=== PATIENT | female | born 1955 | race Caucasian/White ===

== ENCOUNTER 2018-01-05 01:29 | Inpatient (IN) | payer OTHER, SELFPAY ==
[2018-01-05] MEDS ORDERED: Nitroglycerin 0.4 MG TAB (25 Tab Bottle) ONE (01:59)
[2018-01-05 02:21] LABS: #Basophils 0.1 thou/uL (0.0-0.2); #Eosinphils 1.8 thou/uL (0.0-0.7); #Lymphocytes 1.1 thou/uL (1.20-3.40); #Neutrophils 8.2 thou/uL (1.40-6.50); %Basophils 0.7 % (0.0-1.0); %Eosinophils 14.6 % (0.0-10.0); %Lymphocytes 9.1 % (21.0-51.0); %Monocytes 7.9 % (0.0-10.0); %Neutrophils 67.7 % (42.0-75.0); Hemoglobin 6.4 g/dL (12.0-16.0); Hypochromia MARKED = >30 cells (100X) (0-5/hpf); MDiff Complete? YES; Mean Corpuscular HGB CONC 27.8 g/dL (32.0-36.0); Mean Corpuscular Hemoglobin 15.1 pg (27.0-31.0); Mean Corpuscular Volume 54.5 fL (78.0-98.0); Mean Platelet Volume 6.6 fL (7.4-10.4); Microcytosis MARKED = >30 cells (100X) (0-5/hpf); Ovalocytes SLIGHT = 2-5 cells (100X) (0-1/hpf); PLT Morphology Comment Appears Adequate; Platelet Count 261 thou/uL (130-400); RBC Distribution Width 21.9 % (11.5-14.5); Red Blood Cell (RBC) Count 4.22 mill/uL (4.20-5.40); Reflex for Review?? YES
[2018-01-05 02:24] LABS: ALT (SGPT) 7 U/L (8-55); AST (SGOT) 10 U/L (5-34); Albumin 3.9 g/dL (3.4-4.8); Alkaline Phosphatase 63 U/L (40-150); Anion Gap 18 mmol/L (10-20); BUN (Urea Nitrogen) 7 mg/dL (9.8-20.1); Bilirubin, Total 0.8 mg/dL (0.2-1.2); CK (CPK) 26 U/L (29-168); CKMB 0.5 ng/mL (0-6.6); Calc. Creatinine Clearance 0 mL/min (70-130); Calcium 8.7 mg/dL (7.8-10.44); Carbon Dioxide 20 mmol/L (23-31); Chloride 103 mmol/L (98-107); Estimated GFR-MDRD 80; Globulin 3.8 g/dL (2.4-3.5); Glucose 107 mg/dL (80-115); Potassium 3.8 mmol/L (3.5-5.1); Protein, Total 7.7 g/dL (6.0-8.3); Sodium 137 mmol/L (136-145); Troponin I Less than 0.010 ng/mL (< 0.028)
[2018-01-05 03:22] LABS: Iron 10 ug/dL (50-170); Iron Binding Capacity, Total 455 mcg/dL (265-497)
[2018-01-05 05:08] VITALS: BMI 33.6
[2018-01-05] MEDS ORDERED: Ondansetron HCl/PF 4 MG/2 ML Vial IVP PRN ×2 (06:40→18:27)
[2018-01-05] MEDS ORDERED: Ondansetron ODT 4 MG TAB PO PRN (06:40)
[2018-01-05] MEDS ORDERED: Sodium Chloride 0.9% 1,000 ML IV SCH (06:45)
[2018-01-05] MEDS ORDERED: Bisacodyl 5 MG TAB PO PRN (07:51)
[2018-01-05] MEDS ORDERED: Senokot 8.6 MG TAB PO PRN (07:51)
--- NOTE | 2018-01-05 08:28 | RAD ---
UPRIGHT PORTABLE CHEST 1 VIEW: HISTORY: A 62-year-old female with a history of chest pain for 2 weeks, worsening in the last hour. COMPARISON: 06/01/09. FINDINGS: Monitor leads overlie the chest. Atherosclerosis and old granulomatous disease. Mild bilateral vasc ular congestion with some slight blunting of the costophrenic angles and minimal interstitial parench ymal changes in the bases raising concern for some very mild nonspecific interstitial pneumonitis. L ess inspiration than on the prior study. IMPRESSION: Less inspiratory effort with some minimal blunting of both costophrenic angles and minimal parenchyma l changes, particularly in the left base, possibly mild pneumonitis or atypical pneumonia. Atheroscl erosis and old granulomatous disease. Continued short-term followup for clearing or stability. POS: [facility]
--- NOTE | 2018-01-05 09:02 | PDOC.EVN ---
Event Note - Event Note Event Note: h&p [id number]
[2018-01-05] MEDS: Docusate 100 MG CAP PO SCH ×2 (09:30→21:41)
--- NOTE | 2018-01-05 09:39 | HP ---
DATE OF ADMISSION: 01/05/2018 PRIMARY CARE PHYSICIAN: Dr. Sharon Copeland. CHIEF COMPLAINT: Chest pain. HISTORY OF PRESENT ILLNESS: This is a 62-year-old female with a known history of chronic anemia, who woke up with chest pain, radiating to her back in a stabbing quality with some progression of that pain going down her left arm. She also endorses more chronic symptoms including a month-long dyspnea with exertion and dyspnea causing coughing spells. Over the last 2-3 weeks, she has been feeling very cold with some anorexia and dysgeusia and intermittent low- grade fever. She has also been noticing some black tarry stools at home during this timeframe as well. Over the last 2 days, due to sensation of low-grade fever, she has also been taking ibuprofen. REVIEW OF SYSTEMS: As per HPI. Constitutional: No significant weight gain or loss that the patient is aware of. Feeling cold and low-grade fevers as above. HEENT: Denies any lightheadedness, dizziness, or vision changes. Cardiovascular: Chest pain described as above. No episodes of diaphoresis. Respiratory: Dyspnea with exertion and shortness of breath with coughing spells that are nonproductive as above; otherwise, no congestion. Gastrointestinal: No nausea, no vomiting, no diarrhea. She has decreased oral intake secondary to dysgeusia. No constipation. Positive for black tarry stools as noted above. Genitourinary: Denies any dysuria or changes in urinary frequency, quality, quantity, or odor. Musculoskeletal: Moving all 4 extremities without any new myalgias or arthralgias, simply an endorsement of increased fatigability as noted above. Remainder of review of systems, otherwise, negative. PAST MEDICAL HISTORY: Significant for anemia and low B12. PAST SURGICAL HISTORY: 1. Status post tubal ligation. 2. Status post hysterectomy. 3. Status post removal of a submandibular glandular tumor. HOME MEDICATIONS: Per the EMR, the patient's list is significant only for omeprazole 1 cap p.o. daily. ALLERGIES: Include ACETAMINOPHEN and PROPOXYPHENE. FAMILY HISTORY: Significant for hypertension in her mother and her sister and diabetes in her paternal grandmother and paternal uncle. SOCIAL HISTORY: The patient denies any tobacco use. No illicit drug use. Occasional alcohol use, 2 glasses of wine a day. 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 PHYSICAL EXAMINATION: VITAL SIGNS: Temperature of 98.4, heart rate of 86, respirations 18, satting 93 % on room air, blood pressure 119/58. GENERAL: The patient is awake, alert, conversant, in no acute distress, lying in the hospital bed. HEENT: Normocephalic, atraumatic. Equal ocular motions are intact. Slightly dry mucous membranes. Pale conjuctivae. CARDIOVASCULAR: S1 and S2. No murmurs, rubs, or gallops. No pitting pedal edema. Pulses 2+, bilateral upper extremities. RESPIRATORY: Reasonable air movement. No conversational dyspnea. No wheezes, rales, or rhonchi. Slightly diminished throughout, grossly clear to auscultation bilaterally. GASTROINTESTINAL: Positive bowel sounds. Soft, nontender to palpation. MUSCULOSKELETAL: Moving all 4 extremities. LABORATORY DATA AND IMAGING: WBC 12.0, hemoglobin 6.4, hematocrit 23.0, platelets 261. INR 2.17, sodium 137, potassium 3.8, chloride 20, BUN 7, creatinine 0.74, glucose 107, calcium 8.7. Iron 10, TIBC 455, ferritin 10.83, total bilirubin 0.8, AST 10, ALT 7, alkaline phosphatase 63. Creatine kinase 26 , troponin less than 0.01. Total protein 7.7, albumin 3.98. 01/05/2018, chest x-ray, impression, "less inspiratory effort with some minimal blunting of both costophrenic angles and minimal parenchymal changes, particularly in the left base, possibly mild pneumonitis or atypical pneumonia. Atherosclerosis and old granulomatous disease. Continued short-term followup for clearing or stability. " ASSESSMENT AND PLAN: This is a 62-year-old female, who presented with a chief complaint of chest pain and shortness of breath. 1. Chest pain and shortness of breath could be secondary to the patient's anemia, which was noted on admission. This also certainly could represent independent cardiac disease as well. We will trend troponins x3. Maintain the patient on telemetry. Recheck an EKG and echocardiogram in the morning. However, suspect that it may be more likely the patient's symptoms are the result of her anemia. In the setting of black tarry stools, there might be a GI etiology for her loss. The patient currently has already been started on 1 unit PRBC transfusion from the emergency department. She will continue this along with a serial hemoglobin and hematocrit check. GI has also been consulted. 2. Anemia as noted above. 3. Diet: N.p.o. except for medications. Continue to closely monitor. Okay for a diet if the patient will not be undergoing any endoscopy procedure. 4. Activity: As tolerated. 5. Deep venous thrombosis prophylaxis with sequentials. The patient wishes to be FULL CODE at this point in time. JEFFRY
[2018-01-05 10:38] LABS: #Basophils 0.1 thou/uL (0.0-0.2); #Eosinphils 1.3 thou/uL (0.0-0.7); #Lymphocytes 1.2 thou/uL (1.20-3.40); #Monocytes 0.9 thou/uL (0.11-0.59); #Neutrophils 7.3 thou/uL (1.40-6.50); %Basophils 0.7 % (0.0-1.0); %Eosinophils 11.8 % (0.0-10.0); %Monocytes 8.7 % (0.0-10.0); %Neutrophils 67.8 % (42.0-75.0); Anisocytosis MODERATE=16-30 cells (100X) (0-5/hpf); Hemoglobin 7.4 g/dL (12.0-16.0); Hypochromia MARKED = >30 cells (100X) (0-5/hpf); MDiff Complete? YES; Mean Corpuscular HGB CONC 28.7 g/dL (32.0-36.0); Mean Corpuscular Hemoglobin 17.1 pg (27.0-31.0); Mean Corpuscular Volume 59.7 fL (78.0-98.0); Mean Platelet Volume 6.8 fL (7.4-10.4); Microcytosis MARKED = >30 cells (100X) (0-5/hpf); Ovalocytes SLIGHT = 2-5 cells (100X) (0-1/hpf); PLT Morphology Comment Appears Adequate; Platelet Count 253 thou/uL (130-400); Poikilocytosis SLIGHT = 6-15 cells (100X) (0-5/hpf); Red Blood Cell (RBC) Count 4.32 mill/uL (4.20-5.40); Target Cells SLIGHT = 2-5 cells (100X) (0-1/hpf); White Blood Cell (WBC) Count 10.8 thou/uL (4.8-10.8)
[2018-01-05] MEDS ORDERED: Pantoprazole 40 MG VIAL ONE (13:57)
[2018-01-05] MEDS ORDERED: Albuterol Sulfate 2.5 mg/3 ml Neb NEB PRN (14:17)
--- NOTE | 2018-01-05 14:22 | PDOC.EVN ---
Event Note - Event Note Event Note: Patient seen today, alert and oriented. She has chest pain ongoing since 2 weeks , she says was taking iburofen for pains. She is noted to have Hb of 66.4, but stool diagbnostic occult was neg, Pt was taken to GI lab for Endoscuopy but was not done as GI wanted further workup for chest pain and possible pneumonia. Will get Blood Cultures, get inflammotory markers, and will start Abx, will do Cafdiac evalaution, but will hold giving aspirin unti Gi bleed is ruled out.
[2018-01-05] MEDS ORDERED: PROPOFOL 200 MG/20 ML VIAL ONE (15:03)
--- NOTE | 2018-01-05 15:18 | EKG ---
Test Reason : Blood Pressure : / mmHG Vent. Rate : 078 BPM Atrial Rate : 078 BPM P-R Int : 170 ms QRS Dur : 088 ms QT Int : 440 ms P-R-T Axes : 074 051 020 degrees QTc Int : 501 ms Normal sinus rhythm T wave abnormality, consider anterior ischemia Prolonged QT Abnormal ECG Confirmed by TATIANA TONG MD ([id number]) on 01/05/2018 3:17:53 PM Referred By: PRABHA Confirmed By:TATIANA TONG MD
[2018-01-05 15:35] LABS: Troponin I 0.011 ng/mL (< 0.028)
[2018-01-05 16:07] LABS: #Basophils 0.1 thou/uL (0.0-0.2); #Eosinphils 1.1 thou/uL (0.0-0.7); #Lymphocytes 1.1 thou/uL (1.20-3.40); #Neutrophils 9.3 thou/uL (1.40-6.50); %Basophils 0.7 % (0.0-1.0); %Eosinophils 8.7 % (0.0-10.0); %Lymphocytes 8.6 % (21.0-51.0); %Monocytes 8.1 % (0.0-10.0); %Neutrophils 73.9 % (42.0-75.0); Anisocytosis MODERATE=16-30 cells (100X) (0-5/hpf); Hemoglobin 7.4 g/dL (12.0-16.0); Hypochromia SLIGHT = 6-15 cells (100X) (0-5/hpf); MDiff Complete? YES; Mean Corpuscular HGB CONC 28.6 g/dL (32.0-36.0); Mean Corpuscular Hemoglobin 17.1 pg (27.0-31.0); Mean Platelet Volume 8.2 fL (7.4-10.4); Microcytosis MODERATE=15-30 cells (100X) (0-5/hpf); Ovalocytes SLIGHT = 2-5 cells (100X) (0-1/hpf); PLT Morphology Comment Appears Adequate; Platelet Count 197 thou/uL (130-400); Poikilocytosis SLIGHT = 6-15 cells (100X) (0-5/hpf); Polychromasia MODERATE = 3-4 cells (100X) (0-2/hpf); RBC Distribution Width 27.8 % (11.5-14.5); Red Blood Cell (RBC) Count 4.35 mill/uL (4.20-5.40); Schistocytes SLIGHT = 2-5 cells (100X) (0-1/hpf); Target Cells SLIGHT = 2-5 cells (100X) (0-1/hpf); Tear Drops SLIGHT = 2-5 cells (100X) (0-1/hpf); White Blood Cell (WBC) Count 12.5 thou/uL (4.8-10.8)
[2018-01-05] MEDS: cefTRIAXone\\ROCEPHIN 1 GM in Sodium Chloride 0.9% 100 ML IVPB SCH (16:08)
[2018-01-05] MEDS: Azithromycin 500 MG in Sodium Chloride 0.9% 250 ML 250 ML IVPB SCH (16:44)
[2018-01-05] MEDS ORDERED: Pantoprazole 40 MG VIAL IVP SCH ×2 (20:30→21:00)
[2018-01-05] MEDS ORDERED: Ibuprofen 200 MG TAB PO SCH (21:30)
[2018-01-05 21:44] LABS: Troponin I Less than 0.010 ng/mL (< 0.028)
[2018-01-05 22:29] LABS: Bilirubin Negative (Negative); Blood, Urine Trace (Negative); Clarity TURBID (Clear); Glucose, Urine (Dipstick) Negative (Negative); Leukocyte Small (Negative); Nitrite Negative (Negative); Protein, Urine (Dipstick) 30 mg/dL (Neg-Trace); Specific Gravity, Urine 1.025 (1.002-1.036); Urobilinogen 0.2 mg/dL (0.2-1.0); pH, Urine 5.5 (5.0-9.0)
[2018-01-05 22:34] LABS: Bacteria/HPF None Seen HPF (None Seen); Hyaline Casts/LPF 0-3 HYALINE CAST LPF (0-3 Hyaline); Pathc Cast-AUWi Flag 0.43 (0-2.49); Squamous Epithelial 0-3 HPF (0-3)
--- NOTE | 2018-01-05 23:32 | OP ---
DATE OF SURGERY: 01/05/2018 PROCEDURE: EGD. PREPROCEDURE DIAGNOSES: 1. Reported melena. 2. Severe anemia on presentation. POSTPROCEDURE DIAGNOSES: 1. Moderate sized hiatal hernia without Pelon's ulcers or erosions. 2. Normal stomach otherwise. 3. Normal esophagus. 4. Normal duodenum to the third portion with normal appearing villi and no evidence of villous blunt ing or scalloping of folds. RECOMMENDATIONS: 1. Would complete workup for chest pain that she has had some ongoing pain despite hemoglobin to 7. 2. Would transfuse as necessary. 3. Once cleared from cardiovascular standpoint, consider elective colonoscopy. It does not appear t hat she has any acute gastrointestinal bleeding, but she does have iron-deficiency anemia and she did get this done before she leaves. ANESTHESIA: TIVA. PROCEDURE IN DETAIL: After the patient was informed of the risks, benefits, and possible complicatio ns of endoscopy including perforation, reactions to medication, and aspiration, informed consent was obtained. The patient was brought to endoscopy suite, where she was sedated in a gradual fashion. O nce she was comfortable, a bite block was placed in the incisural orifice. The endoscope was advance d to the esophagus, stomach, second and third portion of duodenum and slowly removed. There was good visualization of mucosa. There are no masses, lesions, or malformations. There was a hiatal hernia with no Pelon's ulcers or erosions. There was no villous blunting or scalloping of the duodenal f olds. The stomach was normal in forward and retroflexed views and the duodenum was normal to the thi rd portion. The scope was removed. The patient tolerated the procedure well without any complicatio ns.
--- NOTE | 2018-01-06 00:37 | CON ---
DATE OF CONSULTATION: 01/05/2018 HISTORY OF PRESENT ILLNESS: Ms. Gutierrez is a 62-year-old female, who presented to the emergency room with complaints of chest pain. Apparently, woke in the middle of night with a sharp stabbin g chest pain starting by in her left shoulder from the back by the shoulder blade up to the fro nt, and then into the neck. She is also complaining of headache. She also complained of some shortn ess of breath. She had no nausea, vomiting, or diarrhea. Apparently, she had this pain on and off f or the last few months, but nothing as bad as this. In the emergency room, she was given aspirin and nitroglycerin. Cardiac enzymes and EKG were performed, all of which were normal. Her labs indicate d a hemoglobin between 6 and 7 with microcytosis. On further questioning of the patient with the adm itting doctor, the patient noted she has actually been having black stools recently. She has been ta artie some ibuprofen. She states the past 3 days she has had some fever and cough. Before that, she was taking ibuprofen a couple times a day just for aches and pains. She has had no bright red blood per rectum. No nausea, vomiting, dysphagia, odynophagia, or weight loss. She denies any upper abdom inal pain, lower abdominal pain. She has never had a colonoscopy. HPI is otherwise per admitting no te. REVIEW OF SYSTEMS: She had some chest pain and shortness of breath with exertion. HEENT: Negative. Constitutional: Otherwise negative except for 2 to 3-pound weight loss recently. Respiratory: Co ugh and shortness of breath. Gastrointestinal: The patient does have some reflux at times. No dysp hagia, odynophagia, hematemesis. PAST MEDICAL HISTORY: Negative. She recently started seeing Dr. Sharon Copeland as primary physician. 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 SOCIAL HISTORY: She drinks socially, maybe once a week. She does not use drugs. She does not smoke . ALLERGIES: None known. MEDICATIONS: She takes Pepcid for reflux. Medications here in the hospital: At the time I saw her, she had received IV fluids and no PPIs. PHYSICAL EXAMINATION: VITAL SIGNS: In the emergency room, she had a pulse of 106, blood pressure 118/76. She is afebrile. Here, temperature is 99.3 at 11:44, otherwise she has been afebrile; blood pressure 148/67. LUNGS: Clear. Some decreased breath sounds in the bases bilaterally and some rhonchi there, more so on the left than right. HEART: Regular rate and rhythm. ABDOMEN: Soft and nontender without rebound or guarding. EXTREMITIES: No clubbing, cyanosis, or edema. RECTAL: Dark stool. It is hard to tell if this is melena or not. LABORATORY DATA: White count was 12 on admission, it is 10.8 now; hemoglobin was 6.4, it is 7.4 afte r 1 unit of blood; platelet count is 253; MCV is 59. D-dimer was 2.1. Electrolytes are normal. Iro n is 10, TIBC is 450, ferritin is 10.8. AST and ALT are 10 and 7. CK is 26. Albumin is 3.9. TSH i s 1.6. Chest x-ray: No blunting in both cardiophrenic angles and minimal parenchymal changes, particularly in the left base, possible pneumonitis, atypical pneumonia. Microbiology: Occult blood negative. ASSESSMENT: This is a 62-year-old female who has been having some shortness of breath recently and h ad some chest pain last night. She is getting more short of breath. She came with a hemoglobin of 6 .4. There is no baseline recently, last being 13.4 in 03/2012. She had a low MCV and iron studies c onsistent with iron deficiency anemia. There has been a history of black stools and heavy NSAID use recently, although her Hemoccult was negative. It does not appear she is having acute GI hemorrhages . only been 1 or 2 a day, but definitely she started feeling worse in the past 2 days. With h er history of black stools in the past week or two, she may have an ulcer from NSAID use. Briativ christina, she noted that her mother is having history of polyps and she could have colonic process causing anemia. Even with her Hemoccult being negative, with her having had a hysterectomy in the past and being severely anemic with an iron deficiency, she will need endoscopies. PLAN: 1. Protonix now. 2. We will proceed with an EGD now. 3. She probably needs a stress test at some point in time. If the EGD is negative, she will need a colonoscopy later this admission once other workup is complete.
[2018-01-06 06:03] LABS: Anion Gap 11 mmol/L (10-20); BUN (Urea Nitrogen) 8 mg/dL (9.8-20.1); Calc. Creatinine Clearance 106 mL/min (70-130); Calcium 8.4 mg/dL (7.8-10.44); Carbon Dioxide 24 mmol/L (23-31); Chloride 107 mmol/L (98-107); Estimated GFR-MDRD 88; Glucose 98 mg/dL (80-115); Potassium 3.7 mmol/L (3.5-5.1); Sodium 138 mmol/L (136-145)
[2018-01-06 06:35] LABS: #Basophils 0.1 thou/uL (0.0-0.2); #Eosinphils 0.3 thou/uL (0.0-0.7); #Lymphocytes 1.4 thou/uL (1.20-3.40); #Neutrophils 7.3 thou/uL (1.40-6.50); %Basophils 0.6 % (0.0-1.0); %Lymphocytes 14.2 % (21.0-51.0); %Monocytes 9.7 % (0.0-10.0); %Neutrophils 72.5 % (42.0-75.0); Hemoglobin 6.6 g/dL (12.0-16.0); Mean Corpuscular HGB CONC 28.7 g/dL (32.0-36.0); Mean Corpuscular Hemoglobin 16.9 pg (27.0-31.0); Mean Platelet Volume 7.1 fL (7.4-10.4); Platelet Count 236 thou/uL (130-400); RBC Distribution Width 27.5 % (11.5-14.5); Red Blood Cell (RBC) Count 3.93 mill/uL (4.20-5.40); White Blood Cell (WBC) Count 10.1 thou/uL (4.8-10.8)
[2018-01-06] MEDS: Docusate 100 MG CAP PO SCH ×2 (08:50→22:06)
[2018-01-06] MEDS ORDERED: ISOVUE-370 76%-LOCM 1 ML ONE (13:43)
[2018-01-06] MEDS: cefTRIAXone\\ROCEPHIN 1 GM in Sodium Chloride 0.9% 100 ML IVPB SCH (14:15)
--- NOTE | 2018-01-06 14:38 | PDOC.PN ---
- Subjective Encounter Start Date: 01/06/18 Encounter Start Time: 14:00 Federico is seen today, along with her Daughter In law, Pt is unable to get stress test as she lost her IV access, She c/o chest pain on and off, was nevear evalauted with elevated D dimer done in Er. Will get CTA to r/o PE. - Objective Resuscitation Status: Resuscitation Status FULL:Full Resuscitation MAR Reviewed: Yes Vital Signs & Weight: Vital Signs (12 hours) Temp Pulse Resp BP Pulse Ox 01/06/18 14:33 101 H 12 01/06/18 14:28 99.7 F H 99 20 132/77 96 01/06/18 07:54 98.1 F 80 20 107/67 94 L 01/06/18 07:40 98.6 F 79 12 93 L 01/06/18 06:36 98 01/06/18 06:33 79 12 01/06/18 04:00 98.3 F 76 18 106/67 96 Weight Weight 172 lb 6.4 oz Most Recent Monitor Data Heart Rate from ECG 86 NIBP 128/65 Respiration from ECG 20 I&O: 01/05/18 01/06/18 01/07/18 06:59 06:59 06:59 Intake Total 0 650 300 Balance 0 650 300 Result Diagrams: 01/06/18 05:02 01/06/18 05:02 Radiology Reviewed by me: Yes Phys Exam - Physical Examination HEENT: PERRLA, moist MMs Neck: no nodes, no JVD Respiratory: no wheezing, no rales, no rhonchi Cardiovascular: RRR, no significant murmur, no rub Gastrointestinal: soft, non-tender Musculoskeletal: no edema, pulses present Dx/Plan (1) Anemia, iron deficiency Code(s): D50.9 - IRON DEFICIENCY ANEMIA, UNSPECIFIED Status: Acute Qualifiers: Iron deficiency anemia type: other iron deficiency Qualified Code(s): D50.8 - Other iron deficiency anemias Comment: Will get iron levels, pathology smear did show microcytois, if iron is normal, will do Hb [id number] for thalacemia., Will consult Hematology, no source of loss is detected. EGD normal, planned Colonoscopy. Continue PPI IV BID. (2) Chest pain Code(s): R07.9 - CHEST PAIN, UNSPECIFIED Status: Acute Comment: Waiitng on Nuc stress test.Intermittant chest pains, elevated D dimer in Er, no CT chest wa sdone to rule out PE, pt was hypoxic, will get CTA chest to look for Pe. (3) Pneumonia involving left lung Code(s): J18.9 - PNEUMONIA, UNSPECIFIED ORGANISM Status: Acute Comment: Coninue IV abx, breathing treatment PRN. Low grade fever noted today, no cough or congestion. Will repeat chest xray in 2-3 days. (4) HTN (hypertension) Code(s): I10 - ESSENTIAL (PRIMARY) HYPERTENSION Status: Acute Comment: Continue with home Medications. - Plan cont current plan of care, plan discussed w/ family, continue antibiotics, PT/OT , administrator social welfare, respiratory therapy, incentive spirometry, DVT proph w/ lovenox * . Review of Systems - Review of Systems Constitutional: negative: fever, chills, sweats, weakness, malaise, other Eyes: negative: Pain, Vision Change, Conjunctivae Inflammation, Eyelid Inflammation, Redness, Other ENT: negative: Ear Pain, Ear Discharge, Nose Pain, Nose Discharge, Nose Congestion, Mouth Pain, Mouth Swelling, Throat Pain, Throat Swelling, Other Respiratory: negative: Cough, Dry, Shortness of Breath, Hemoptysis, SOB with Excertion, Pleuritic Pain, Sputum, Wheezing Cardiovascular: negative: chest pain, palpitations, orthopnea, paroxysmal nocturnal dyspnea, edema, light headedness, other Gastrointestinal: negative: Nausea, Vomiting, Abdominal Pain, Diarrhea, Constipation, Melena, Hematochezia, Other Genitourinary: negative: Dysuria, Frequency, Incontinence, Hematuria, Retention , Other Musculoskeletal: negative: Neck Pain, Shoulder Pain, Arm Pain, Back Pain, Hand Pain, Leg Pain, Foot Pain, Other - Medications/Allergies Allergies/Adverse Reactions: Allergies Allergy/AdvReac Type Severity Reaction Status Date / Time acetaminophen Allergy Verified 01/05/18 05:02 [From Darvocet-N] propoxyphene Allergy Verified 01/05/18 05:02 [From Darvocet-N] Medications: Current Medications Albuterol Sulfate (Ventolin) 2.5 mg NEB Q2H PRN PRN Reason: Wheezing Albuterol/Ipratropium (Duoneb) 3 ml NEB [id number] Last Admin: 01/06/18 14:33 Dose: 3 ml Bisacodyl (Dulcolax) 10 mg PO DAILYPRN PRN PRN Reason: Constipation Docusate Sodium (Colace) 100 mg PO BID [facility] Last Admin: 01/06/18 08:50 Dose: Not Given Azithromycin 500 mg/ Sodium (Chloride) 250 mls @ 250 mls/hr IVPB Q24HR [facility] Last Admin: 01/05/18 16:44 Dose: 250 mls Ceftriaxone Sodium 1 gm/ (Sodium Chloride) 100 mls @ 200 mls/hr IVPB Q24HR [facility] Last Admin: 01/06/18 14:15 Dose: 100 mls Ondansetron HCl (Zofran) 4 mg IVP Q6H PRN PRN Reason: Nausea/Vomiting Last Admin: 01/05/18 18:40 Dose: 4 mg Pantoprazole Sodium (Protonix) 40 mg PO DAILY [facility] Last Admin: 01/06/18 08:50 Dose: 40 mg Senna (Senokot) 2 tab PO HSPRN PRN PRN Reason: Constipation Sodium Chloride (Flush - Normal Saline) 10 ml IVF Q12HR [facility] Last Admin: 01/06/18 08:50 Dose: 10 ml Sodium Chloride (Flush - Normal Saline) 10 ml IVF PRN PRN PRN Reason: Saline Flush
[2018-01-06 14:46] LABS: Reticulocyte Count 2.4 % (0.5-1.5)
[2018-01-06] MEDS: Ibuprofen 200 MG TAB PO PRN (14:51)
[2018-01-06 15:01] LABS: Iron 12 ug/dL (50-170); Iron Binding Capacity, Total 356 mcg/dL (265-497)
--- NOTE | 2018-01-06 18:20 | PDOC.EVN ---
Event Note - Event Note Event Note: Patient is noted to have PE left lung, will start pt on Lovenox 1mg kg BID. Confirmed with Radiologist, there is no discetion.
--- NOTE | 2018-01-06 18:25 | CT ---
ADDENDUM: Findings concerning CTA chest were discussed with Dr. Rivera on 01/06/18 at 1814 hours. POS: [facility]
--- NOTE | 2018-01-06 20:44 | PRG ---
DATE OF SERVICE: 01/06/2018 SUBJECTIVE: Ms. Gutierrez is without complaints today, but she has been through a lot as she could not have her stress test that she could be getting in an IV. Multiple attempts were unsuccessful, she now has an IJ iv. . MEDICATIONS: Albuterol, DuoNeb, azithromycin, Dulcolax, ceftriaxone, Colace, Zofran, Protonix 40 mg daily. PHYSICAL EXAMINATION: GENERAL: She is resting comfortably in bed. Family is at the bedside. VITAL SIGNS: Temperature is 98.1, pulse ox is 94% on room air, respirations are 18, pulse is 80, blood pressure 107/67. ABDOMEN: Soft, nontender. LUNGS: Decreased breath sounds, right base. LABORATORY STUDIES: White count is 10, hemoglobin 6.6, MCV 59, platelet count 236. Sodium 138, potassium 3.7. Electrolytes, otherwise, normal. C-reactive protein was 15 yesterday. Procalcitonin 0.08. ASSESSMENT: 1. Microcytic anemia. This is probably chronic to some degree. She came in with chest pain. An EGD was normal. Occult blood was negative, low iron of 10 and a low ferritin of 10. This is likely related to gastrointestinal blood loss despite the negative Hemoccult. 2. Shortness of breath, likely related to anemia, but she has got a significant amount of wheezing. Chest x-ray is unclear. She may have had some infiltrate. She has been treated for an atypical pneumonia. 3. More concerning to me is her chest pain. I suspect her anemia is not new; however, the chest pain is. A cardiac workup is pending. 4. Symptomatic anemia. She is going to receive 2 units of blood. She received 1 yesterday. Once she is adequately resuscitated and cardiac evaluation has been complete, we will proceed with a colonoscopy. PLAN: From a GI standpoint, once she is resuscitated and cardiac evaluation is complete and pulmonary status is stable, we would embark on a colonoscopy. [facility]ITAL[facility]
[2018-01-06] MEDS: Azithromycin 500 MG in Sodium Chloride 0.9% 250 ML 250 ML IVPB SCH (22:04)
[2018-01-06] MEDS: Enoxaparin Sodium 80 MG/0.8 ML SYRINGE SC SCH (22:04)
[2018-01-07] MEDS: Azithromycin 500 MG in Sodium Chloride 0.9% 250 ML 250 ML IVPB SCH ×2 (00:50→21:30)
[2018-01-07 05:46] LABS: #Basophils 0.1 thou/uL (0.0-0.2); #Eosinphils 0.9 thou/uL (0.0-0.7); #Lymphocytes 1.1 thou/uL (1.20-3.40); #Monocytes 0.6 thou/uL (0.11-0.59); #Neutrophils 6.4 thou/uL (1.40-6.50); %Eosinophils 9.4 % (0.0-10.0); %Lymphocytes 12.3 % (21.0-51.0); %Neutrophils 70.4 % (42.0-75.0); Hemoglobin 9.2 g/dL (12.0-16.0); Mean Corpuscular HGB CONC 30.1 g/dL (32.0-36.0); Mean Corpuscular Hemoglobin 19.6 pg (27.0-31.0); Mean Corpuscular Volume 65.2 fL (78.0-98.0); Mean Platelet Volume 7.5 fL (7.4-10.4); Platelet Count 231 thou/uL (130-400); RBC Distribution Width 29.9 % (11.5-14.5); Red Blood Cell (RBC) Count 4.69 mill/uL (4.20-5.40); White Blood Cell (WBC) Count 9.1 thou/uL (4.8-10.8)
[2018-01-07 05:57] LABS: Anion Gap 11 mmol/L (10-20); BUN (Urea Nitrogen) 9 mg/dL (9.8-20.1); Calc. Creatinine Clearance 113 mL/min (70-130); Calcium 8.4 mg/dL (7.8-10.44); Carbon Dioxide 24 mmol/L (23-31); Chloride 106 mmol/L (98-107); Estimated GFR-MDRD Greater than 90; Glucose 96 mg/dL (80-115); Potassium 3.7 mmol/L (3.5-5.1); Sodium 137 mmol/L (136-145)
[2018-01-07] MEDS: Docusate 100 MG CAP PO SCH ×2 (08:42→21:23)
[2018-01-07] MEDS: Enoxaparin Sodium 80 MG/0.8 ML SYRINGE SC SCH ×2 (08:43→21:23)
--- NOTE | 2018-01-07 08:52 | ULT ---
BILATERAL LOWER EXTREMITY VENOUS DUPLEX EXAM: Deep veins of both lower extremities evaluated with ultrasound, color Doppler, spectral analysis, and compression. INDICATION: Bilateral lower extremity pain and edema. FINDINGS: In the left lower extremity, there is echogenic thrombus and loss of compressibility involving the di stal femoral vein with thrombus seen throughout the femoral vein and into the popliteal vein. The right lower extremity vein showed normal compression and blood flow. IMPRESSION: Deep vein thrombosis in the left lower extremity involving the common femoral vein, femoral vein, and proximal popliteal vein. The patient has known pulmonary embolus and is on anticoagulation therapy. The nurse was notified of the results of this exam by the technologist. CODE CR POS: [facility]
--- NOTE | 2018-01-07 14:44 | PDOC.PN ---
- Subjective Encounter Start Date: 01/07/18 Encounter Start Time: 13:00 Patient is seen today, alert and oriejnted. No chest pain, Now, pt is releived there is a reason for her chest pain, but still dont know the reason for her Drop in Hb. - Objective Resuscitation Status: Resuscitation Status DNR:Do Not Resuscitate Vital Signs & Weight: Vital Signs (12 hours) Temp Pulse Resp BP Pulse Ox 01/07/18 12:00 98.4 F 87 20 140/85 93 L 01/07/18 11:35 76 16 01/07/18 07:47 99.7 F H 81 16 165/75 H 96 01/07/18 07:45 99 01/07/18 07:42 80 108 H 99 01/07/18 07:40 99.7 F H 81 16 92 L 01/07/18 03:36 98.6 F 87 20 128/73 97 Weight Weight 172 lb 6.4 oz Most Recent Monitor Data Heart Rate from ECG 86 NIBP 128/65 Respiration from ECG 20 I&O: 01/06/18 01/07/18 01/08/18 06:59 06:59 06:59 Intake Total 650 1300 300 Balance 650 1300 300 Result Diagrams: 01/07/18 04:58 01/07/18 04:58 Radiology Reviewed by me: Yes Phys Exam - Physical Examination HEENT: PERRLA, moist MMs Neck: no nodes, no JVD Respiratory: no wheezing, no rales Cardiovascular: RRR, no significant murmur Gastrointestinal: soft, non-tender Musculoskeletal: no edema, pulses present Neurological: non-focal, normal sensation Dx/Plan (1) Anemia, iron deficiency Code(s): D50.9 - IRON DEFICIENCY ANEMIA, UNSPECIFIED Status: Acute Qualifiers: Iron deficiency anemia type: other iron deficiency Qualified Code(s): D50.8 - Other iron deficiency anemias Comment: Will get iron levels, pathology smear did show microcytois, if iron is normal, will do Hb [id number] for thalacemia., Will consult Hematology, no source of loss is detected. EGD normal, planned Colonoscopy. Continue PPI IV BID. (2) Chest pain Code(s): R07.9 - CHEST PAIN, UNSPECIFIED Status: Acute Comment: d/c Nuc stress test, as the reason for chest pain is PE. waiting on echo. (3) Pneumonia involving left lung Code(s): J18.9 - PNEUMONIA, UNSPECIFIED ORGANISM Status: Acute Comment: breathing treatment PRN. Low grade fever noted today, no cough or congestion. Will repeat chest xray in 2-3 days. Procalcitonin is low, so less chance of bacterial pneumonia, will d/c IV abx. (4) HTN (hypertension) Code(s): I10 - ESSENTIAL (PRIMARY) HYPERTENSION Status: Acute Comment: Continue with home Medications. (5) Pulmonary embolism on left Code(s): I26.99 - OTHER PULMONARY EMBOLISM WITHOUT ACUTE COR PULMONALE Status : Acute Comment: Will continue pt on Lovenox 1mg/kg BID, will need eliquis at discharge. (6) Acute deep vein thrombosis (DVT) of left lower extremity Code(s): I82.402 - ACUTE EMBOLISM AND THOMBOS UNSP DEEP VEINS OF L LOW EXTREM Status: Acute Qualifiers: Affected thrombotic vein of extremity: femoral Qualified Code(s): I82.412 - Acute embolism and thrombosis of left femoral vein Comment: Plan is same with benigno, - Plan cont current plan of care, plan discussed w/ family, continue antibiotics, PT/OT , social media developer, respiratory therapy, incentive spirometry, DVT proph w/ lovenox * . Review of Systems - Review of Systems Eyes: negative: Pain, Vision Change, Conjunctivae Inflammation, Eyelid Inflammation, Redness, Other ENT: negative: Ear Pain, Ear Discharge, Nose Pain, Nose Discharge, Nose Congestion, Mouth Pain, Mouth Swelling, Throat Pain, Throat Swelling, Other Respiratory: negative: Cough, Dry, Shortness of Breath, Hemoptysis, SOB with Excertion, Pleuritic Pain, Sputum, Wheezing Cardiovascular: negative: chest pain, palpitations, orthopnea, paroxysmal nocturnal dyspnea, edema, light headedness, other Gastrointestinal: negative: Nausea, Vomiting, Abdominal Pain, Diarrhea, Constipation, Melena, Hematochezia, Other Genitourinary: negative: Dysuria, Frequency, Incontinence, Hematuria, Retention , Other Musculoskeletal: negative: Neck Pain, Shoulder Pain, Arm Pain, Back Pain, Hand Pain, Leg Pain, Foot Pain, Other - Medications/Allergies Allergies/Adverse Reactions: Allergies Allergy/AdvReac Type Severity Reaction Status Date / Time acetaminophen Allergy Verified 01/05/18 05:02 [From Darvocet-N] propoxyphene Allergy Verified 01/05/18 05:02 [From Darvocet-N] Medications: Current Medications Albuterol Sulfate (Ventolin) 2.5 mg NEB Q2H PRN PRN Reason: Wheezing Albuterol/Ipratropium (Duoneb) 3 ml NEB [id number] [facility] Last Admin: 01/07/18 11:35 Dose: 3 ml Bisacodyl (Dulcolax) 10 mg PO DAILYPRN PRN PRN Reason: Constipation Docusate Sodium (Colace) 100 mg PO BID [facility] Last Admin: 01/07/18 08:42 Dose: Not Given Enoxaparin Sodium (Lovenox) 80 mg SC 0900,2100 [facility] Last Admin: 01/07/18 08:43 Dose: 80 mg Ceftriaxone Sodium 1 gm/ (Sodium Chloride) 100 mls @ 200 mls/hr IVPB Q24HR [facility] Last Admin: 01/06/18 14:15 Dose: 100 mls Azithromycin 500 mg/ Sodium (Chloride) 250 mls @ 250 mls/hr IVPB 2200 [facility] Last Admin: 01/06/18 22:04 Dose: 250 mls Ibuprofen (Motrin) 200 mg PO Q6H PRN PRN Reason: Fever/Mild Pain Last Admin: 01/06/18 14:51 Dose: 200 mg Ondansetron HCl (Zofran) 4 mg IVP Q6H PRN PRN Reason: Nausea/Vomiting Last Admin: 01/05/18 18:40 Dose: 4 mg Pantoprazole Sodium (Protonix) 40 mg PO DAILY [facility] Last Admin: 01/07/18 08:43 Dose: 40 mg Senna (Senokot) 2 tab PO HSPRN PRN PRN Reason: Constipation Sodium Chloride (Flush - Normal Saline) 10 ml IVF Q12HR [facility] Last Admin: 01/07/18 08:44 Dose: 10 ml Sodium Chloride (Flush - Normal Saline) 10 ml IVF PRN PRN PRN Reason: Saline Flush
[2018-01-07] MEDS: cefTRIAXone\\ROCEPHIN 1 GM in Sodium Chloride 0.9% 100 ML IVPB SCH (15:30)
[2018-01-07] MEDS: Ibuprofen 200 MG TAB PO PRN (15:39)
[2018-01-07 17:22] LABS: Bilirubin Small (Negative); Blood, Urine Trace (Negative); Clarity CLOUDY (Clear); Glucose, Urine (Dipstick) Negative (Negative); Leukocyte Small (Negative); Nitrite Negative (Negative); Protein, Urine (Dipstick) 30 mg/dL (Neg-Trace); Specific Gravity, Urine 1.033 (1.002-1.036)
[2018-01-07 17:27] LABS: Bacteria/HPF None Seen HPF (None Seen); WBC/HPF 0-3 HPF (0-3)
[2018-01-07 17:42] LABS: Hyaline Casts/LPF 0-3 HYALINE CAST LPF (0-3 Hyaline); RBC/HPF 0-3 HPF (0-3)
--- NOTE | 2018-01-07 19:19 | PRG ---
DATE OF SERVICE: 01/07/2018 SUBJECTIVE: Ms. Gutierrez is without complaints. She is doing breathing treatment. Yesterday evening, s he was found to have pulmonary embolus on CT. 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 She h as been Hemoccult negative on admission normal EGD. OBJECTIVE: VITAL SIGNS: Temperature is 98.4, pulse was 99, blood pressure 140/85. LUNGS: Clear. HEART: Regular rate and rhythm without murmurs. ABDOMEN: Soft and nontender. LABORATORY STUDIES: White count 9.1, hemoglobin 9.2, platelet count 231. Electrolytes normal. ASSESSMENT: 1. Iron deficiency anemia, severe on admission with EGD with hiatal hernia with no Pelon's ulcers or erosions. No bleeding sites identified. Colonoscopy is recommended. 2. Respiratory issues on admission, she was initially started on antibiotics. Now, she has been fou nd to have a PE and has been started on Lovenox 80 subcu q.12 hours. RECOMMENDATIONS: 1. I will stop her antibiotics. She has not had fever or leukocytosis, but we will defer this decis ion to Internal Medicine. 2. She needs a colonoscopy. This could be done at a later date. Once over the acute phase of the PE, this is a fairly large pulmonary embolus per the radiologist report.
[2018-01-08 05:46] LABS: Anion Gap 12 mmol/L (10-20); BUN (Urea Nitrogen) 9 mg/dL (9.8-20.1); Calc. Creatinine Clearance 113 mL/min (70-130); Calcium 8.4 mg/dL (7.8-10.44); Carbon Dioxide 23 mmol/L (23-31); Chloride 106 mmol/L (98-107); Estimated GFR-MDRD Greater than 90; Glucose 94 mg/dL (80-115); Potassium 3.9 mmol/L (3.5-5.1); Sodium 137 mmol/L (136-145)
[2018-01-08 05:58] LABS: #Basophils 0.1 thou/uL (0.0-0.2); #Eosinphils 1.2 thou/uL (0.0-0.7); #Lymphocytes 0.8 thou/uL (1.20-3.40); #Monocytes 0.6 thou/uL (0.11-0.59); %Basophils 0.9 % (0.0-1.0); %Eosinophils 13.3 % (0.0-10.0); %Lymphocytes 9.7 % (21.0-51.0); %Monocytes 7.3 % (0.0-10.0); %Neutrophils 68.8 % (42.0-75.0); Hemoglobin 9.2 g/dL (12.0-16.0); Mean Corpuscular HGB CONC 28.6 g/dL (32.0-36.0); Mean Corpuscular Hemoglobin 19.2 pg (27.0-31.0); Mean Corpuscular Volume 67.2 fL (78.0-98.0); Mean Platelet Volume 6.8 fL (7.4-10.4); Platelet Count 257 thou/uL (130-400); RBC Distribution Width 30.5 % (11.5-14.5); Red Blood Cell (RBC) Count 4.79 mill/uL (4.20-5.40); White Blood Cell (WBC) Count 8.7 thou/uL (4.8-10.8)
[2018-01-08] MEDS: Docusate 100 MG CAP PO SCH ×2 (08:43→21:07)
[2018-01-08] MEDS: Enoxaparin Sodium 80 MG/0.8 ML SYRINGE SC SCH ×2 (08:44→21:07)
[2018-01-08] MEDS ORDERED: IRON SUCROSE COMPLEX 100 MG/5 ML SLOW IVP SCH (09:15)
[2018-01-08] MEDS ORDERED: Sodium Ferric Gluconate 250 MG, Admixture Fee 1 EACH in Sodium Chloride 0.9% 250 ML 250 ML IVPB SCH (09:45)
[2018-01-08] MEDS ORDERED: ISOVUE-370 76%-LOCM 1 ML ONE (10:03)
--- NOTE | 2018-01-08 13:25 | PRG ---
DATE OF SERVICE: 01/08/2018 Ms. Gutierrez's breathing is much better. She feels more comfortable. PHYSICAL EXAMINATION: VITAL SIGNS: Temperature is still up at 99.3, pulse 93, blood pressure 147/94. LUNGS: Lungs are much more clear. HEART: Regular rate and rhythm. ABDOMEN: Soft, nontender. LABORATORY STUDIES: Hemoglobin is 9.2. White count 8.7, platelet count 257. Electrolytes normal. ASSESSMENT: 1. Pulmonary embolus, bilateral significant size. She had effusions and some respiratory embarrassm ent on admission. 2. At first when she came in it was thought that she had some pneumonia, suspect her low grade tempe rature is related to PE and DVT. She is on azithromycin and ceftriaxone. These can probably be disc ontinued. 3. Anemia, microcytic indices. She was heme negative on admission, but has definite definitive iron deficiency, likely GI tract etiology. Her EGD was normal. We have been holding off on a colonoscopy waiting for her respiratory status to improve. She is vikash g to probably have to have the colonoscopy on full anticoagulation as I do not think we can stop her anticoagulation at this point in time with the severity of the PEs. I think that to wait until she i s off anticoagulation to further evaluate the source of her severe microcytic anemia would not be a g ood idea. She is at some risk of having underlying malignancy causing both the anemia and the PEs. I have explained this to the patient and family and we will try to proceed with a colonoscopy ay of this week.
--- NOTE | 2018-01-08 14:45 | PDOC.PN ---
- Subjective Encounter Start Date: 01/08/18 Encounter Start Time: 14:43 Subjective: feel smuch better. reports dark stools but no BRB [place] -: no recent weight loss, appettite is very good. -: FH of breast CA in first cousin - Objective Resuscitation Status: Resuscitation Status DNR:Do Not Resuscitate MAR Reviewed: Yes Vital Signs & Weight: Vital Signs (12 hours) Temp Pulse Resp BP Pulse Ox 01/08/18 11:44 99.3 F 93 20 147/94 H 94 L 01/08/18 10:07 85 16 98 01/08/18 08:38 98.9 F 85 16 152/82 H 92 L 01/08/18 07:56 98.9 F 75 20 176/80 H 92 L 01/08/18 06:22 79 16 99 01/08/18 04:00 98.4 F 85 19 134/83 100 01/08/18 03:00 88 16 Weight Weight 172 lb 6.4 oz Most Recent Monitor Data Heart Rate from ECG 86 NIBP 128/65 Respiration from ECG 20 I&O: 01/07/18 01/08/18 01/09/18 06:59 06:59 06:59 Intake Total 1300 600 Balance 1300 600 Result Diagrams: 01/08/18 05:27 01/08/18 05:27 Additional Labs: Microbiology 01/05/18 12:44 Stool Stool Occult Blood (RACQUEL) - Final 01/05/18 17:08 Venous blood - Left Arm Blood Culture - Preliminary NO GROWTH AT 48 HOURS 01/05/18 14:51 Venous blood - Left Arm Blood Culture - Preliminary NO GROWTH AT 48 HOURS Laboratory Tests 01/05/18 01/06/18 01/07/18 09:39 05:02 04:58 Hgb 7.4 L 9.2 L Iron 12 L TIBC 356 % Saturation 3 L 01/08/18 05:27 Hgb 9.2 L Iron TIBC % Saturation labs reviewed Phys Exam - Physical Examination Constitutional: NAD HEENT: PERRLA, moist MMs, sclera anicteric, oral pharynx no lesions Neck: no nodes, no JVD, supple, full ROM Respiratory: no wheezing, no rales, no rhonchi, clear to auscultation bilateral Cardiovascular: RRR, no significant murmur, no rub Gastrointestinal: soft, non-tender, no distention, positive bowel sounds Musculoskeletal: no edema, pulses present Neurological: non-focal, normal sensation, moves all 4 limbs Psychiatric: normal affect, A&O x 3 Skin: no rash Dx/Plan (1) Pulmonary embolism on left Code(s): I26.99 - OTHER PULMONARY EMBOLISM WITHOUT ACUTE COR PULMONALE Status : Acute Comment: Will continue pt on Lovenox 1mg/kg BID, will need eliquis at discharge. (2) Acute deep vein thrombosis (DVT) of left lower extremity Code(s): I82.402 - ACUTE EMBOLISM AND THOMBOS UNSP DEEP VEINS OF L LOW EXTREM Status: Acute Qualifiers: Affected thrombotic vein of extremity: femoral Qualified Code(s): I82.412 - Acute embolism and thrombosis of left femoral vein Comment: Plan is same with eleiquis, (3) Anemia, iron deficiency Code(s): D50.9 - IRON DEFICIENCY ANEMIA, UNSPECIFIED Status: Acute Qualifiers: Iron deficiency anemia type: other iron deficiency Qualified Code(s): D50.8 - Other iron deficiency anemias Comment: Low iron levels, pathology smear did show microcytois, Will consult Hematology, no source of loss is detected. EGD normal, planned Colonoscopy. Continue PPI IV BID. (4) Chest pain Code(s): R07.9 - CHEST PAIN, UNSPECIFIED Status: Resolved Comment: d/c Nuc stress test, as the reason for chest pain is PE. waiting on echo. (5) HTN (hypertension) Code(s): I10 - ESSENTIAL (PRIMARY) HYPERTENSION Status: Acute Comment: Continue with home Medications. (6) Pneumonia involving left lung Code(s): J18.9 - PNEUMONIA, UNSPECIFIED ORGANISM Status: Acute Comment: breathing treatment PRN. Low grade fever noted today, no cough or congestion. Will repeat chest xray in 2-3 days. Procalcitonin is low, so less chance of bacterial pneumonia, will d/c IV abx. - Plan PT/OT, out of bed/ambulate, DVT proph w/SCDs Discussed w GI Dr Varela-Colonoscopy on /cont Lovenox BID for now -: will also get hematology recs w Anticoag and possb GIB. -: give 2 doses of IV Iron for low levels. -: cont meds as below. H/h stable.monitor. -: Cont PPI BID. am labs * . Review of Systems - Review of Systems Constitutional: weakness. negative: fever, chills, sweats, malaise, other ENT: negative: Ear Pain, Ear Discharge, Nose Pain, Nose Discharge, Nose Congestion, Mouth Pain, Mouth Swelling, Throat Pain, Throat Swelling, Other Respiratory: negative: Cough, Dry, Shortness of Breath, Hemoptysis, SOB with Excertion, Pleuritic Pain, Sputum, Wheezing Cardiovascular: negative: chest pain, palpitations, orthopnea, paroxysmal nocturnal dyspnea, edema, light headedness, other Gastrointestinal: negative: Nausea, Vomiting, Abdominal Pain, Diarrhea, Constipation, Melena, Hematochezia, Other Genitourinary: negative: Dysuria, Frequency, Incontinence, Hematuria, Retention , Other Musculoskeletal: negative: Neck Pain, Shoulder Pain, Arm Pain, Back Pain, Hand Pain, Leg Pain, Foot Pain, Other Skin: negative: Rash, Lesions, Juan, Bruising, Other Neurological: negative: Weakness, Numbness, Incoordination, Change in Speech, Confusion, Seizures, Other - Medications/Allergies Allergies/Adverse Reactions: Allergies Allergy/AdvReac Type Severity Reaction Status Date / Time acetaminophen Allergy Verified 01/05/18 05:02 [From Darvocet-N] propoxyphene Allergy Verified 01/05/18 05:02 [From Darvocet-N] Medications: Current Medications Albuterol Sulfate (Ventolin) 2.5 mg NEB Q2H PRN PRN Reason: Wheezing Albuterol/Ipratropium (Duoneb) 3 ml NEB [id number] [facility] Last Admin: 01/08/18 14:33 Dose: 3 ml Bisacodyl (Dulcolax) 10 mg PO DAILYPRN PRN PRN Reason: Constipation Docusate Sodium (Colace) 100 mg PO BID [facility] Last Admin: 01/08/18 08:43 Dose: Not Given Enoxaparin Sodium (Lovenox) 80 mg SC 0900,2100 [facility] Last Admin: 01/08/18 08:44 Dose: 80 mg Ceftriaxone Sodium 1 gm/ (Sodium Chloride) 100 mls @ 200 mls/hr IVPB Q24HR [facility] Last Admin: 01/07/18 15:30 Dose: 100 mls Azithromycin 500 mg/ Sodium (Chloride) 250 mls @ 250 mls/hr IVPB 2200 [facility] Last Admin: 01/07/18 21:30 Dose: 250 mls Ibuprofen (Motrin) 200 mg PO Q6H PRN PRN Reason: Fever/Mild Pain Last Admin: 01/07/18 15:39 Dose: 200 mg Ondansetron HCl (Zofran) 4 mg IVP Q6H PRN PRN Reason: Nausea/Vomiting Last Admin: 01/05/18 18:40 Dose: 4 mg Pantoprazole Sodium (Protonix) 40 mg PO DAILY [facility] Last Admin: 01/08/18 08:44 Dose: 40 mg Senna (Senokot) 2 tab PO HSPRN PRN PRN Reason: Constipation Sodium Chloride (Flush - Normal Saline) 10 ml IVF Q12HR [facility] Last Admin: 01/08/18 08:44 Dose: 10 ml Sodium Chloride (Flush - Normal Saline) 10 ml IVF PRN PRN PRN Reason: Saline Flush
[2018-01-08] MEDS: cefTRIAXone\\ROCEPHIN 1 GM in Sodium Chloride 0.9% 100 ML IVPB SCH (16:25)
--- NOTE | 2018-01-08 17:23 | CT ---
CT ABDOMEN AND PELVIS WITH IV AND ORAL CONTRAST: HISTORY: Abdominal pain. Weight loss. COMPARISON: CT chest from 01/06/2018. FINDINGS: Bilateral pleural fluid, left greater than right. Atelectasis at the left base, greater than on the prior chest CT. Large hiatal hernia. The liver, spleen, kidneys, adrenal glands, and pancreas are u nremarkable. The urinary bladder is within normal limits. The appendix is not visualized. No evide nce of bowel obstruction or inflammation. Degenerative changes of the lumbar spine. IMPRESSION: 1. No significant abnormalities of the abdomen are demonstrated to explain the patient's symptoms. 2. Left pleural fluid and basilar atelectasis have increased since the recent chest CT. 3. Large hiatal hernia. POS: AMINA
--- NOTE | 2018-01-08 19:08 | CON ---
DATE OF CONSULTATION: 01/08/2018 REASON FOR CONSULTATION: Anemia, DVT and PE. HISTORY OF PRESENT ILLNESS: Ms. Gutierrez is a pleasant 62-year-old female, who over the past s everal weeks has had intermittent chest pain, nonradiating, and present over her left breast. It wor sened, so she presented to the emergency room on the with chest pain and shortness of breath. C hest x-ray showed blunting of her bilateral costophrenic angles, worry for pneumonitis or atypical pn eumonia. CBC at presentation showed microcytic anemia with a hemoglobin of 6.2. She was transfused 3 units packed RBCs and admitted for further evaluation. The patient admits that she has had black s tools over the past week. She has been taking ibuprofen for pain. Dr. Varela was consulted and perf ormed an EGD which showed moderate size hiatal hernia, but no Pelon ulcers or erosions. No evidenc e of bleeding. A colonoscopy was not performed due to shortness of breath. She had a CT angio of e chest and thorax which showed large bilateral pulmonary emboli. There was also a left pleural effu [place]. She had a venogram which was positive for left lower extremity DVT. She has been started on t herapeutic Lovenox. The patient admits to increasing fatigue over the last month. She admits to a 1 0-pound unintentional weight loss. She denies any hemoptysis, hoarseness, cough. No abdominal diste ntion. No vaginal bleeding. She was seen by her primary care several weeks ago and noted to have a right breast mass and had a mammogram planned. Her last mammogram was 6 years ago. She has never landin d a colonoscopy. PAST MEDICAL HISTORY: Anemia and apparently B12 deficiency. PAST SURGICAL HISTORY: 1. Tubal ligation. 2. Hysterectomy. 3. Submandibular glandular tumor. ALLERGIES: TYLENOL and PROPOXYPHENE. HOME MEDICATIONS: Prilosec 20 mg daily. FAMILY HISTORY: She is first cousin with breast cancer. No history of blood clots or GI cancer. SOCIAL HISTORY: Lives with her boyfriend. Denies any tobacco or illicit drug use. Occasionally dri nks wine. REVIEW OF SYSTEMS: Twelve point review of systems is negative except for noted in HPI. PHYSICAL EXAMINATION: VITAL SIGNS: Temperature is 99.3, pulse 93, respiratory rate 20, BP is 147/94. She is 94% on room a ir. GENERAL: Well-developed, well-nourished female in no acute distress. HEENT: Normocephalic, atraumatic. Pupils equal and reactive to light. NECK: Supple. CARDIOVASCULAR: Regular rate and rhythm. LUNGS: Clear. ABDOMEN: Soft, nontender. There is no organomegaly. EXTREMITIES: No clubbing, cyanosis or edema. SKIN: No rash. HEMATOLOGIC: No petechia or purpura. NEUROLOGICAL: Nonfocal. PSYCHIATRIC: The patient is alert and oriented and appropriate. BREASTS: She has a 2 cm palpable nodule behind her nipple on her right breast. No other lymphadenop athy. PERTINENT LABORATORY AND X-RAYS: Current WBCs are 9.1, hemoglobin 9.2, hematocrit 30.6, platelet cou nt is 231,000, 71% neutrophils, 12% lymphocytes. Retic count is 2.4. Sodium is 137, potassium 3.9, chloride 106, CO2 is 23, BUN is 9, creatinine 0.64, calcium is 8.4, iron is 12, TIBC 356, saturation is 3, ferritin is 10, total bilirubin is 0.8, AST is 10, ALT 7, alkaline phosphatase is 63, creatinin e kinase is 26. Troponin is negative. C-reactive protein is 15. Serum total protein is 7.7, albumi n 3.9, globulin 3.8. Urine is negative for bacteria. Radiology per HPI. ASSESSMENT: 1. New onset deep venous thrombosis and pulmonary embolism. 2. Iron deficient anemia. 3. Nodule on the right nipple. 4. Pleural effusion. 5. Recent 10 pound weight loss. DISCUSSION: The patient is currently undergoing a GI evaluation. This was put on hold after discove ry of the large bilateral PE. She is currently on anticoagulation and will need to be continued for at least 6 months. She will need to be transitioned to oral anticoagulation as she is uninsured is l ikely to be Coumadin. She has been given a dose of IV iron. She will need outpatient mammogram to e valuate the small nodule behind her right nipple. Plan a CT of her abdomen and pelvis to look for an y worrisome mass. Thank you for the consult. We will follow along with hospital course.
[2018-01-08] MEDS: Azithromycin 500 MG in Sodium Chloride 0.9% 250 ML 250 ML IVPB SCH (21:06)
[2018-01-09 05:30] LABS: Anion Gap 15 mmol/L (10-20); BUN (Urea Nitrogen) 7 mg/dL (9.8-20.1); Calc. Creatinine Clearance 107 mL/min (70-130); Calcium 8.5 mg/dL (7.8-10.44); Carbon Dioxide 22 mmol/L (23-31); Chloride 105 mmol/L (98-107); Estimated GFR-MDRD 89; Glucose 84 mg/dL (80-115); Potassium 3.5 mmol/L (3.5-5.1); Sodium 138 mmol/L (136-145)
[2018-01-09 06:02] LABS: #Basophils 0.1 thou/uL (0.0-0.2); #Eosinphils 0.8 thou/uL (0.0-0.7); #Monocytes 0.8 thou/uL (0.11-0.59); #Neutrophils 5.2 thou/uL (1.40-6.50); %Basophils 1.1 % (0.0-1.0); %Eosinophils 10.4 % (0.0-10.0); %Lymphocytes 12.8 % (21.0-51.0); %Monocytes 9.8 % (0.0-10.0); Hemoglobin 9.5 g/dL (12.0-16.0); Mean Corpuscular HGB CONC 29.8 g/dL (32.0-36.0); Mean Corpuscular Hemoglobin 19.6 pg (27.0-31.0); Mean Corpuscular Volume 65.8 fL (78.0-98.0); Platelet Count 265 thou/uL (130-400); RBC Distribution Width 31.1 % (11.5-14.5); Red Blood Cell (RBC) Count 4.86 mill/uL (4.20-5.40); White Blood Cell (WBC) Count 7.8 thou/uL (4.8-10.8)
--- NOTE | 2018-01-09 07:33 | CT ---
CT ANGIOGRAM THORAX WITH IV CONTRAST AND 3D RECONSTRUCTIONS 01/06/18 HISTORY: Shortness of breath. Chest pain which started last . Elevated D-dimer. COMPARISON: None available. FINDINGS: There is extensive pulmonary emboli involving left lower lobe pulmonary arteries with a few filling d efects seen within right lower lobe pulmonary arteries also suggesting pulmonary emboli. The thoracic aorta is normal in caliber without evidence of an aortic dissection. There is a small to moderate sized left pleural effusion. There are interstitial and parenchymal opac ities seen in the left lower lobe in the region of the pulmonary embolus. The findings may be attribu table to atelectasis given the pleural effusion, but infiltrate related to infectious process is a po ssibility. There is no definite consolidation seen to suggest pulmonary infarction at this time. A 5 mm noncalcified pulmonary nodule is seen in the medial aspect of the right lower lobe. There is evide nce of prior granulomatous disease with calcified right hilar lymph nodes as well as calcified granul asndra in the region of the right middle lobe, the right upper lobe. Ground glass densities are seen in the left upper lobe which may be related to mild volume loss. A tiny pericardial effusion is present. The heart is mildly enlarged. There is a moderate sized hiatal hernia with the fundus and proximal body of the stomach above the he midiaphragms. Degenerative changes are noted in the spine. IMPRESSION: 1. Bilateral lower lobe and right middle lobe pulmonary emboli much greater on the left. 2. Mild cardiomegaly. 3. Tiny pericardial effusion. 4. Small to moderate sized left pleural effusion. 5. Interstitial and parenchymal opacities within the left lower lobe which may be related to eit her atelectasis or infectious process. Followup to resolution is recommended. No parenchymal consolid ation is seen to definitely suggest pulmonary infarction at this time. 6. Noncalcified 5 mm pulmonary nodule right lower lobe. 7. Moderate sized hiatal hernia. 8. Above findings were discussed with Dr. Rivera on 01/06/18 at 1814 hours. POS: STACEY
[2018-01-09] MEDS ORDERED: cloNIDine 0.1 MG TAB PO PRN (08:35)
[2018-01-09] MEDS ORDERED: hydrALAZINE 20 MG/ML VIAL SLOW IVP PRN (08:35)
[2018-01-09] MEDS: Docusate 100 MG CAP PO SCH ×3 (09:11→21:12)
[2018-01-09] MEDS: Enoxaparin Sodium 80 MG/0.8 ML SYRINGE SC SCH ×2 (09:11→21:11)
[2018-01-09] MEDS: Amlodipine 5 MG TAB PO SCH (09:12)
--- NOTE | 2018-01-09 13:32 | PDOC.PN ---
- Subjective Encounter Start Date: 01/09/18 Encounter Start Time: 13:30 Subjective: feels much better. no new complaints. no overnight events - Objective Resuscitation Status: Resuscitation Status DNR:Do Not Resuscitate MAR Reviewed: Yes Vital Signs & Weight: Vital Signs (12 hours) Temp Pulse Resp BP Pulse Ox 01/09/18 12:00 98.6 F 91 20 140/73 91 L 01/09/18 10:56 86 16 93 L 01/09/18 09:12 76 01/09/18 08:05 98.8 F 86 16 90 L 01/09/18 08:00 98.8 F 76 12 163/86 H 90 L 01/09/18 07:17 82 16 95 01/09/18 04:28 95 01/09/18 04:00 98.3 F 84 18 151/72 H 93 L Weight Weight 172 lb 6.4 oz Most Recent Monitor Data Heart Rate from ECG 86 NIBP 128/65 Respiration from ECG 20 I&O: 01/08/18 01/09/18 01/10/18 06:59 06:59 06:59 Intake Total 600 Balance 600 Result Diagrams: 01/09/18 04:25 01/09/18 04:25 Additional Labs: Microbiology 01/05/18 12:44 Stool Stool Occult Blood (RACQUEL) - Final 01/07/18 16:55 Urine clean catch Urine Culture - Preliminary NO GROWTH AT 24 HOURS 01/05/18 17:08 Venous blood - Left Arm Blood Culture - Preliminary NO GROWTH AT 48 HOURS 01/05/18 14:51 Venous blood - Left Arm Blood Culture - Preliminary NO GROWTH AT 48 HOURS Radiology Reviewed by me: Yes (A/P CT- no Acute lesions) Phys Exam - Physical Examination Constitutional: NAD HEENT: PERRLA, moist MMs, sclera anicteric, oral pharynx no lesions Neck: no nodes, no JVD, supple, full ROM Respiratory: no wheezing, no rales, no rhonchi, clear to auscultation bilateral Cardiovascular: RRR, no significant murmur, no rub Gastrointestinal: soft, non-tender, no distention, positive bowel sounds Musculoskeletal: no edema, pulses present Neurological: non-focal, normal sensation, moves all 4 limbs Psychiatric: normal affect, A&O x 3 Skin: no rash Dx/Plan (1) Pulmonary embolism on left Code(s): I26.99 - OTHER PULMONARY EMBOLISM WITHOUT ACUTE COR PULMONALE Status : Acute Comment: Will continue pt on Lovenox 1mg/kg BID, will need eliquis at discharge. (2) Acute deep vein thrombosis (DVT) of left lower extremity Code(s): I82.402 - ACUTE EMBOLISM AND THOMBOS UNSP DEEP VEINS OF L LOW EXTREM Status: Acute Qualifiers: Affected thrombotic vein of extremity: femoral Qualified Code(s): I82.412 - Acute embolism and thrombosis of left femoral vein Comment: Plan is same with eleiquis, (3) Anemia, iron deficiency Code(s): D50.9 - IRON DEFICIENCY ANEMIA, UNSPECIFIED Status: Acute Qualifiers: Iron deficiency anemia type: other iron deficiency Qualified Code(s): D50.8 - Other iron deficiency anemias Comment: Low iron levels, pathology smear did show microcytois, Appreciate Hematology recs, no source of loss is detected. EGD normal, planned Colonoscopy. Continue PPI. (4) Chest pain Code(s): R07.9 - CHEST PAIN, UNSPECIFIED Status: Resolved Comment: d/c Nuc stress test, as the reason for chest pain is PE. waiting on echo. (5) HTN (hypertension) Code(s): I10 - ESSENTIAL (PRIMARY) HYPERTENSION Status: Acute Comment: Continue with home Medications. (6) Pneumonia involving left lung Code(s): J18.9 - PNEUMONIA, UNSPECIFIED ORGANISM Status: Acute Comment: breathing treatment PRN. Low grade fever noted today, no cough or congestion. Will repeat chest xray in 2-3 days. Procalcitonin is low, so less chance of bacterial pneumonia, will d/c IV abx. (7) Breast nodule Code(s): N63.0 - UNSPECIFIED LUMP IN UNSPECIFIED BREAST Status: Chronic Comment: OP Mammography - Plan plan discussed w/ family, PT/OT, respiratory therapy, incentive spirometry, out of bed/ambulate, DVT proph w/SCDs Hemodynamically stable.Colonoscopy tomorrow .Prep per Dr levin -: OP mamography .Pt educated about the need.No obvious Cancerous masses on CT -: cont Lovenox BID for now.change to Po after colonoscopy if no active bleed -: am labs. -: BP reminas high. will add low dose Amlodipine & titrate * . Review of Systems - Review of Systems Constitutional: weakness. negative: fever, chills, sweats, malaise, other ENT: negative: Ear Pain, Ear Discharge, Nose Pain, Nose Discharge, Nose Congestion, Mouth Pain, Mouth Swelling, Throat Pain, Throat Swelling, Other Respiratory: negative: Cough, Dry, Shortness of Breath, Hemoptysis, SOB with Excertion, Pleuritic Pain, Sputum, Wheezing Cardiovascular: negative: chest pain, palpitations, orthopnea, paroxysmal nocturnal dyspnea, edema, light headedness, other Gastrointestinal: negative: Nausea, Vomiting, Abdominal Pain, Diarrhea, Constipation, Melena, Hematochezia, Other Genitourinary: negative: Dysuria, Frequency, Incontinence, Hematuria, Retention , Other Musculoskeletal: negative: Neck Pain, Shoulder Pain, Arm Pain, Back Pain, Hand Pain, Leg Pain, Foot Pain, Other Skin: negative: Rash, Lesions, Juan, Bruising, Other Neurological: negative: Weakness, Numbness, Incoordination, Change in Speech, Confusion, Seizures, Other - Medications/Allergies Allergies/Adverse Reactions: Allergies Allergy/AdvReac Type Severity Reaction Status Date / Time acetaminophen Allergy Verified 01/05/18 05:02 [From Darvocet-N] propoxyphene Allergy Verified 01/05/18 05:02 [From Darvocet-N] Medications: Current Medications Albuterol Sulfate (Ventolin) 2.5 mg NEB Q2H PRN PRN Reason: Wheezing Albuterol/Ipratropium (Duoneb) 3 ml NEB [id number] [facility] Last Admin: 01/09/18 10:56 Dose: 3 ml Amlodipine Besylate (Norvasc) 5 mg PO DAILY [facility] Last Admin: 01/09/18 09:12 Dose: 5 mg Bisacodyl (Dulcolax) 10 mg PO DAILYPRN PRN PRN Reason: Constipation Clonidine (Catapres) 0.1 mg PO Q4H PRN PRN Reason: SBP>160 Docusate Sodium (Colace) 100 mg PO BID [facility] Last Admin: 01/09/18 09:47 Dose: Not Given Enoxaparin Sodium (Lovenox) 80 mg SC 0900,2100 [facility] Last Admin: 01/09/18 09:11 Dose: 80 mg Hydralazine HCl (Apresoline) 10 mg SLOW IVP Q4H PRN PRN Reason: SBP>170 Ceftriaxone Sodium 1 gm/ (Sodium Chloride) 100 mls @ 200 mls/hr IVPB Q24HR [facility] Last Admin: 01/08/18 16:25 Dose: 100 mls Azithromycin 500 mg/ Sodium (Chloride) 250 mls @ 250 mls/hr IVPB 2200 [facility] Last Admin: 01/08/18 21:06 Dose: 250 mls Ibuprofen (Motrin) 200 mg PO Q6H PRN PRN Reason: Fever/Mild Pain Last Admin: 01/07/18 15:39 Dose: 200 mg Ondansetron HCl (Zofran) 4 mg IVP Q6H PRN PRN Reason: Nausea/Vomiting Last Admin: 01/05/18 18:40 Dose: 4 mg Pantoprazole Sodium (Protonix) 40 mg PO DAILY [facility] Last Admin: 01/09/18 09:11 Dose: 40 mg Senna (Senokot) 2 tab PO HSPRN PRN PRN Reason: Constipation Sodium Chloride (Flush - Normal Saline) 10 ml IVF Q12HR [facility] Last Admin: 01/08/18 21:07 Dose: 10 ml Sodium Chloride (Flush - Normal Saline) 10 ml IVF PRN PRN PRN Reason: Saline Flush
[2018-01-09] MEDS: cefTRIAXone\\ROCEPHIN 1 GM in Sodium Chloride 0.9% 100 ML IVPB SCH (14:49)
[2018-01-09] MEDS ORDERED: GoLYTELY 4,000 ml Bottle PO SCH (18:15)
[2018-01-09] MEDS: Azithromycin 500 MG in Sodium Chloride 0.9% 250 ML 250 ML IVPB SCH (21:12)
--- NOTE | 2018-01-10 04:07 | PRG ---
DATE OF SERVICE: 01/09/2018 SUBJECTIVE: Ms. Gutierrez feels better. She is breathing better. She has been seen by Hematology. She had a CAT scan of her abdomen and pelvis, which were nonrevealing. OBJECTIVE: VITAL SIGNS: Temperature is 99, pulse 79, blood pressure 150/88. LUNGS: Clear, decreased breath sounds at the left base. ABDOMEN: Soft, nontender. EXTREMITIES: No clubbing, cyanosis, or edema. LABORATORY STUDIES: White count 10.8, hemoglobin 9.5, MCV 65, platelet count 265. Sodium 136, potas sium 3.5, BUN and creatinine are . ASSESSMENT AND PLAN: 1. Severe iron deficiency anemia with only finding on EGD of large hiatal hernia. There were no Cam fer's ulcerations or erosions. Colonoscopy will be necessary. Iron deficiency was documented despi te heme negative stool. 2. Large pulmonary embolism with a left-sided pleural effusion, respiratory status is improved. She has been on treatment for about 3 days now should be stabilized, we will plan for colonoscopy tomorrow to evaluate the colon.
[2018-01-10 07:06] LABS: %Eosinophils 7.2 % (0.0-10.0); %Lymphocytes 10.4 % (21.0-51.0); %Monocytes 9.2 % (0.0-10.0); %Neutrophils 72.3 % (42.0-75.0); Hemoglobin 9.4 g/dL (12.0-16.0); Mean Corpuscular HGB CONC 29.8 g/dL (32.0-36.0); Mean Corpuscular Hemoglobin 19.6 pg (27.0-31.0); Mean Corpuscular Volume 65.8 fL (78.0-98.0); Mean Platelet Volume 6.5 fL (7.4-10.4); Platelet Count 271 thou/uL (130-400); RBC Distribution Width 31.4 % (11.5-14.5); White Blood Cell (WBC) Count 7.1 thou/uL (4.8-10.8)
[2018-01-10 07:07] LABS: #Basophils 0.1 thou/uL (0.0-0.2); #Eosinphils 0.5 thou/uL (0.0-0.7); #Lymphocytes 0.7 thou/uL (1.20-3.40); #Monocytes 0.7 thou/uL (0.11-0.59); #Neutrophils 5.1 thou/uL (1.40-6.50)
[2018-01-10 07:11] LABS: Anion Gap 12 mmol/L (10-20); BUN (Urea Nitrogen) 6 mg/dL (9.8-20.1); Calc. Creatinine Clearance 116 mL/min (70-130); Calcium 8.3 mg/dL (7.8-10.44); Carbon Dioxide 24 mmol/L (23-31); Chloride 105 mmol/L (98-107); Estimated GFR-MDRD Greater than 90; Glucose 86 mg/dL (80-115); Potassium 3.6 mmol/L (3.5-5.1); Sodium 137 mmol/L (136-145)
[2018-01-10 08:01] LABS: Anisocytosis MODERATE=16-30 cells (100X) (0-5/hpf); Hypochromia MODERATE=16-30 cells (100X) (0-5/hpf); MDiff Complete? YES; Microcytosis MODERATE=15-30 cells (100X) (0-5/hpf); PLT Morphology Comment Appears Adequate; Polychromasia MODERATE = 3-4 cells (100X) (0-2/hpf)
[2018-01-10] MEDS: Amlodipine 5 MG TAB PO SCH (09:00)
[2018-01-10] MEDS: Enoxaparin Sodium 80 MG/0.8 ML SYRINGE SC SCH ×2 (09:00→21:25)
[2018-01-10] MEDS: Docusate 100 MG CAP PO SCH ×2 (10:05→21:24)
[2018-01-10] MEDS ORDERED: Lidocaine 1% PF 5 ML VIAL ONE (12:01)
[2018-01-10] MEDS ORDERED: PROPOFOL 200 MG/20 ML VIAL ONE (12:01)
--- NOTE | 2018-01-10 12:48 | EKG ---
Test Reason : CP Blood Pressure : / mmHG Vent. Rate : 117 BPM Atrial Rate : 117 BPM P-R Int : 176 ms QRS Dur : 084 ms QT Int : 338 ms P-R-T Axes : 050 037 -17 degrees QTc Int : 471 ms Sinus tachycardia S1 Q3 T3 Abnormal ECG Confirmed by MAURY KING D.O. ([id number]), newspaper editor managing SOLEDAD BLANCHARD ([id number]) on 01/10/2018 12:48:26 PM Referred By: Confirmed By:MAURY KING D.O.
[2018-01-10] MEDS ORDERED: cefTRIAXone\\ROCEPHIN 1 GM VIAL ONE (14:35)
--- NOTE | 2018-01-10 14:35 | PDOC.PN ---
- Subjective Encounter Start Date: 01/10/18 Encounter Start Time: 14:34 Subjective: feels better. no BRB VA or dark stools. no F/C.no CP/SOB - Objective Resuscitation Status: Resuscitation Status DNR:Do Not Resuscitate MAR Reviewed: Yes Vital Signs & Weight: Vital Signs (12 hours) Temp Pulse Resp BP Pulse Ox 01/10/18 11:26 98.4 F 87 18 159/84 H 94 L 01/10/18 10:57 78 16 93 L 01/10/18 09:00 78 01/10/18 08:55 98.4 F 87 18 93 L 01/10/18 07:46 98.4 F 78 16 145/78 H 93 L 01/10/18 06:54 81 16 92 L 01/10/18 04:00 99.7 F H 79 18 139/78 91 L Weight Weight 172 lb 6.4 oz Most Recent Monitor Data Heart Rate from ECG 86 NIBP 128/65 Respiration from ECG 20 Result Diagrams: 01/10/18 06:40 01/10/18 06:40 Additional Labs: Microbiology 01/07/18 16:55 Urine clean catch Urine Culture - Final Yeast species 01/05/18 12:44 Stool Stool Occult Blood (RACQUEL) - Final 01/05/18 17:08 Venous blood - Left Arm Blood Culture - Preliminary NO GROWTH AT 48 HOURS 01/05/18 14:51 Venous blood - Left Arm Blood Culture - Preliminary NO GROWTH AT 48 HOURS Phys Exam - Physical Examination Constitutional: NAD HEENT: PERRLA, moist MMs, sclera anicteric, oral pharynx no lesions Neck: no nodes, no JVD, supple, full ROM Respiratory: no wheezing, no rales, no rhonchi, clear to auscultation bilateral Cardiovascular: RRR, no significant murmur, no rub Gastrointestinal: soft, non-tender, no distention, positive bowel sounds Musculoskeletal: no edema, pulses present Neurological: non-focal, normal sensation, moves all 4 limbs Psychiatric: normal affect, A&O x 3 Dx/Plan (1) Pulmonary embolism on left Code(s): I26.99 - OTHER PULMONARY EMBOLISM WITHOUT ACUTE COR PULMONALE Status : Acute Comment: Will continue pt on Lovenox 1mg/kg BID, will need eliquis at discharge. (2) Acute deep vein thrombosis (DVT) of left lower extremity Code(s): I82.402 - ACUTE EMBOLISM AND THOMBOS UNSP DEEP VEINS OF L LOW EXTREM Status: Acute Qualifiers: Affected thrombotic vein of extremity: femoral Qualified Code(s): I82.412 - Acute embolism and thrombosis of left femoral vein Comment: Plan is same with eleiquis, (3) Anemia, iron deficiency Code(s): D50.9 - IRON DEFICIENCY ANEMIA, UNSPECIFIED Status: Acute Qualifiers: Iron deficiency anemia type: other iron deficiency Qualified Code(s): D50.8 - Other iron deficiency anemias Comment: Low iron levels, pathology smear did show microcytois, Appreciate Hematology recs, no source of loss is detected. EGD normal, planned Colonoscopy. Continue PPI. (4) Chest pain Code(s): R07.9 - CHEST PAIN, UNSPECIFIED Status: Resolved Comment: d/c Nuc stress test, as the reason for chest pain is PE. waiting on echo. (5) HTN (hypertension) Code(s): I10 - ESSENTIAL (PRIMARY) HYPERTENSION Status: Acute Comment: Continue with home Medications. (6) Pneumonia involving left lung Code(s): J18.9 - PNEUMONIA, UNSPECIFIED ORGANISM Status: Acute Comment: breathing treatment PRN. Low grade fever noted today, no cough or congestion. Will repeat chest xray in 2-3 days. Procalcitonin is low, so less chance of bacterial pneumonia, will d/c IV abx. (7) Breast nodule Code(s): N63.0 - UNSPECIFIED LUMP IN UNSPECIFIED BREAST Status: Chronic Comment: OP Mammography - Plan plan discussed w/ family, PT/OT, respiratory therapy, incentive spirometry, out of bed/ambulate, DVT proph w/SCDs discussed anticoagulation in detail w Pt & family -: Coumadin is better choice as Pt Uninsured & would not be able to afford -: eliquis /xarelto after 1 month free samples -: will refer to coumadin clinic on DC -: colonoscopy today.wait for results to make final decision. * .HD stable. * H/H stable * AM labs * cont PPI Review of Systems - Review of Systems Constitutional: weakness. negative: fever, chills, sweats, malaise, other ENT: negative: Ear Pain, Ear Discharge, Nose Pain, Nose Discharge, Nose Congestion, Mouth Pain, Mouth Swelling, Throat Pain, Throat Swelling, Other Respiratory: negative: Cough, Dry, Shortness of Breath, Hemoptysis, SOB with Excertion, Pleuritic Pain, Sputum, Wheezing Cardiovascular: negative: chest pain, palpitations, orthopnea, paroxysmal nocturnal dyspnea, edema, light headedness, other Gastrointestinal: negative: Nausea, Vomiting, Abdominal Pain, Diarrhea, Constipation, Melena, Hematochezia, Other Genitourinary: negative: Dysuria, Frequency, Incontinence, Hematuria, Retention , Other Musculoskeletal: negative: Neck Pain, Shoulder Pain, Arm Pain, Back Pain, Hand Pain, Leg Pain, Foot Pain, Other Skin: negative: Rash, Lesions, Juan, Bruising, Other Neurological: negative: Weakness, Numbness, Incoordination, Change in Speech, Confusion, Seizures, Other - Medications/Allergies Allergies/Adverse Reactions: Allergies Allergy/AdvReac Type Severity Reaction Status Date / Time acetaminophen Allergy Verified 01/05/18 05:02 [From Darvocet-N] propoxyphene Allergy Verified 01/05/18 05:02 [From Darvocet-N] Medications: Current Medications Albuterol Sulfate (Ventolin) 2.5 mg NEB Q2H PRN PRN Reason: Wheezing Albuterol/Ipratropium (Duoneb) 3 ml NEB [id number] [facility] Last Admin: 01/10/18 14:03 Dose: Not Given Amlodipine Besylate (Norvasc) 5 mg PO DAILY [facility] Last Admin: 01/10/18 09:00 Dose: 5 mg Bisacodyl (Dulcolax) 10 mg PO DAILYPRN PRN PRN Reason: Constipation Clonidine (Catapres) 0.1 mg PO Q4H PRN PRN Reason: SBP>160 Docusate Sodium (Colace) 100 mg PO BID [facility] Last Admin: 01/10/18 10:05 Dose: Not Given Enoxaparin Sodium (Lovenox) 80 mg SC 0900,2100 [facility] Last Admin: 01/10/18 09:00 Dose: 80 mg Hydralazine HCl (Apresoline) 10 mg SLOW IVP Q4H PRN PRN Reason: SBP>170 Ceftriaxone Sodium 1 gm/ (Sodium Chloride) 100 mls @ 200 mls/hr IVPB Q24HR [facility] Last Admin: 01/09/18 14:49 Dose: 100 mls Azithromycin 500 mg/ Sodium (Chloride) 250 mls @ 250 mls/hr IVPB 2200 [facility] Last Admin: 01/09/18 21:12 Dose: 250 mls Ibuprofen (Motrin) 200 mg PO Q6H PRN PRN Reason: Fever/Mild Pain Last Admin: 01/07/18 15:39 Dose: 200 mg Ondansetron HCl (Zofran) 4 mg IVP Q6H PRN PRN Reason: Nausea/Vomiting Last Admin: 01/05/18 18:40 Dose: 4 mg Pantoprazole Sodium (Protonix) 40 mg PO DAILY [facility] Last Admin: 01/10/18 09:00 Dose: 40 mg Senna (Senokot) 2 tab PO HSPRN PRN PRN Reason: Constipation Sodium Chloride (Flush - Normal Saline) 10 ml IVF Q12HR [facility] Last Admin: 01/09/18 21:12 Dose: 10 ml Sodium Chloride (Flush - Normal Saline) 10 ml IVF PRN PRN PRN Reason: Saline Flush
[2018-01-10] MEDS ORDERED: Sodium Chloride 0.9% 100 ML ONE (14:36)
[2018-01-10] MEDS: cefTRIAXone\\ROCEPHIN 1 GM in Sodium Chloride 0.9% 100 ML IVPB SCH (14:45)
[2018-01-10] MEDS ORDERED: Promethazine HCl 25 MG/ML VIAL SLOW IVP PRN (15:29)
[2018-01-10] MEDS ORDERED: Promethazine HCl 25 MG/ML VIAL IM PRN (15:29)
[2018-01-10] MEDS ORDERED: Ondansetron HCl/PF 4 MG/2 ML Vial IVP PRN (15:29)
--- NOTE | 2018-01-10 18:05 | OP ---
DATE OF PROCEDURE: 01/10/2018 PROCEDURE: Colonoscopy (diagnostic). INDICATION FOR PROCEDURE: Iron deficiency anemia. DESCRIPTION OF PROCEDURE: After the risks and benefits of the procedure were explained to the patien t including risks of bleeding, infection, perforation, reactions to anesthesia, aspiration and/or hillary n, informed consent was obtained. The patient was then taken to the endoscopy suite where deep sedat ion was administered via propofol and anesthesia support. Once adequate sedation was achieved, the s [employer] colonoscope was introduced into the rectum and advanced to the terminal ileum without difficu lty. The quality of the prep was good with good views of the mucosa achieved. The patient tolerated the procedure well with no immediate perioperative complications. COLONOSCOPY FINDINGS: Digital rectal exam: Normal. COLON FINDINGS: Normal appearing mucosa was seen in the terminal ileum as well as at the ileocecal v alve, appendiceal orifice and within the cecum itself. Normal appearing mucosa was also seen in the ascending, transverse, descending and sigmoid colon. Normal appearing mucosa was also seen in the re ctum. Small internal hemorrhoids were seen on rectal retroflexion. IMPRESSION: 1. Normal colonoscopy. 2. No etiology for iron deficiency anemia seen during this examination. RECOMMENDATIONS: 1. We would continue to trend H&H and transfuse as necessary to maintain an H&H of 7/21. 2. Continue to monitor clinically for signs of active gastrointestinal bleeding. 3. While enlarged hiatal hernia could potentially cause an iron deficiency anemia. Given the normal colonoscopy today, capsule endoscopy could be considered for further evaluation. 4. We would consider non-GI sources of anemia including possible thalassemia. We will continue to follow. Please call with any additional questions.
[2018-01-10] MEDS: Azithromycin 500 MG in Sodium Chloride 0.9% 250 ML 250 ML IVPB SCH (21:25)
[2018-01-11] MEDS: Amlodipine 5 MG TAB PO SCH (10:18)
[2018-01-11] MEDS: Enoxaparin Sodium 80 MG/0.8 ML SYRINGE SC SCH ×2 (10:18→20:11)
[2018-01-11] MEDS: Cefdinir 300 MG CAP PO SCH ×2 (10:18→20:11)
[2018-01-11] MEDS: Docusate 100 MG CAP PO SCH ×2 (10:19→20:11)
[2018-01-11 13:30] LABS: INR-International Normal Ratio 1.2; Prothrombin Time 14.8 SEC (12.0-14.7)
--- NOTE | 2018-01-11 14:22 | PDOC.PN ---
- Subjective Encounter Start Date: 01/11/18 Encounter Start Time: 14:20 Subjective: feels well. no new complaints -: NL colonoscopy.no SOB/CP - Objective Resuscitation Status: Resuscitation Status DNR:Do Not Resuscitate MAR Reviewed: Yes Vital Signs & Weight: Vital Signs (12 hours) Temp Pulse Resp BP Pulse Ox 01/11/18 13:54 97 16 95 01/11/18 11:40 99.2 F 93 20 135/78 94 L 01/11/18 10:27 84 16 95 01/11/18 10:18 81 01/11/18 07:52 99.2 F 93 20 95 01/11/18 07:40 98.8 F 81 16 163/86 H 92 L 01/11/18 06:16 83 16 94 L 01/11/18 04:00 98.9 F 78 28 H 141/84 H 92 L 01/11/18 02:46 95 01/11/18 02:30 85 12 Weight Weight 213 lb 6 oz Most Recent Monitor Data Heart Rate from ECG 86 NIBP 128/65 Respiration from ECG 20 I&O: 01/10/18 01/11/18 01/12/18 06:59 06:59 06:59 Intake Total 610 Balance 610 Result Diagrams: 01/10/18 06:40 01/10/18 06:40 Additional Labs: Microbiology 01/07/18 16:55 Urine clean catch Urine Culture - Final Yeast species 01/05/18 17:08 Venous blood - Left Arm Blood Culture - Final NO GROWTH IN 5 DAYS 01/05/18 14:51 Venous blood - Left Arm Blood Culture - Final NO GROWTH IN 5 DAYS 01/05/18 12:44 Stool Stool Occult Blood (RACQUEL) - Final Phys Exam - Physical Examination Constitutional: NAD HEENT: PERRLA, moist MMs, sclera anicteric, oral pharynx no lesions Neck: no nodes, no JVD, supple, full ROM Respiratory: no wheezing, no rales, no rhonchi, clear to auscultation bilateral Cardiovascular: RRR, no significant murmur, no rub Gastrointestinal: soft, non-tender, no distention, positive bowel sounds Musculoskeletal: no edema, pulses present Neurological: non-focal, normal sensation, moves all 4 limbs Psychiatric: normal affect, A&O x 3 Skin: no rash Dx/Plan (1) Pulmonary embolism on left Code(s): I26.99 - OTHER PULMONARY EMBOLISM WITHOUT ACUTE COR PULMONALE Status : Acute Comment: Will continue pt on Lovenox 1mg/kg BID, will need eliquis at discharge. (2) Acute deep vein thrombosis (DVT) of left lower extremity Code(s): I82.402 - ACUTE EMBOLISM AND THOMBOS UNSP DEEP VEINS OF L LOW EXTREM Status: Acute Qualifiers: Affected thrombotic vein of extremity: femoral Qualified Code(s): I82.412 - Acute embolism and thrombosis of left femoral vein Comment: Plan is same with eliquis, (3) Anemia, iron deficiency Code(s): D50.9 - IRON DEFICIENCY ANEMIA, UNSPECIFIED Status: Acute Qualifiers: Iron deficiency anemia type: other iron deficiency Qualified Code(s): D50.8 - Other iron deficiency anemias Comment: Low iron levels, pathology smear did show microcytois, Appreciate Hematology recs, no source of loss is detected. EGD normal, Normal Colonoscopy. Continue PPI. (4) Chest pain Code(s): R07.9 - CHEST PAIN, UNSPECIFIED Status: Resolved Comment: d/c Nuc stress test, as the reason for chest pain is PE. waiting on echo. (5) HTN (hypertension) Code(s): I10 - ESSENTIAL (PRIMARY) HYPERTENSION Status: Chronic Comment: Continue with home Medications. (6) Pneumonia involving left lung Code(s): J18.9 - PNEUMONIA, UNSPECIFIED ORGANISM Status: Acute Comment: breathing treatment PRN. Low grade fever noted today, no cough or congestion. Will repeat chest xray in 2-3 days. Procalcitonin is low, so less chance of bacterial pneumonia, will d/c IV abx. (7) Breast nodule Code(s): N63.0 - UNSPECIFIED LUMP IN UNSPECIFIED BREAST Status: Chronic Comment: OP Mammography - Plan continue antibiotics, PT/OT, respiratory therapy, incentive spirometry, out of bed/ambulate, DVT proph w/SCDs start coumadin .monitor PT/INR. OP f/u w PCP . -: pt will need to stay in house till INR therapeutic -: OP f/u w Hematology for further work up for [place] -: add PO Iron. EGD/colonoscopy Normal. -: H/H in am * . Review of Systems - Medications/Allergies Allergies/Adverse Reactions: Allergies Allergy/AdvReac Type Severity Reaction Status Date / Time acetaminophen Allergy Verified 01/05/18 05:02 [From Darvocet-N] propoxyphene Allergy Verified 01/05/18 05:02 [From Darvocet-N] Medications: Current Medications Albuterol Sulfate (Ventolin) 2.5 mg NEB Q2H PRN PRN Reason: Wheezing Albuterol/Ipratropium (Duoneb) 3 ml NEB [id number] [facility] Last Admin: 01/11/18 13:54 Dose: 3 ml Amlodipine Besylate (Norvasc) 5 mg PO DAILY [facility] Last Admin: 01/11/18 10:18 Dose: 5 mg Bisacodyl (Dulcolax) 10 mg PO DAILYPRN PRN PRN Reason: Constipation Cefdinir (Omnicef) 300 mg PO BID [facility] Last Admin: 01/11/18 10:18 Dose: 300 mg Clonidine (Catapres) 0.1 mg PO Q4H PRN PRN Reason: SBP>160 Docusate Sodium (Colace) 100 mg PO BID [facility] Last Admin: 01/11/18 10:19 Dose: Not Given Enoxaparin Sodium (Lovenox) 80 mg SC 0900,2100 [facility] Last Admin: 01/11/18 10:18 Dose: 80 mg Hydralazine HCl (Apresoline) 10 mg SLOW IVP Q4H PRN PRN Reason: SBP>170 Ibuprofen (Motrin) 200 mg PO Q6H PRN PRN Reason: Fever/Mild Pain Last Admin: 01/07/18 15:39 Dose: 200 mg Ondansetron HCl (Zofran) 4 mg IVP Q6H PRN PRN Reason: Nausea/Vomiting Last Admin: 01/05/18 18:40 Dose: 4 mg Pantoprazole Sodium (Protonix) 40 mg PO DAILY [facility] Last Admin: 01/11/18 10:18 Dose: 40 mg Senna (Senokot) 2 tab PO HSPRN PRN PRN Reason: Constipation Sodium Chloride (Flush - Normal Saline) 10 ml IVF Q12HR [facility] Last Admin: 01/11/18 10:19 Dose: 10 ml Sodium Chloride (Flush - Normal Saline) 10 ml IVF PRN PRN PRN Reason: Saline Flush Warfarin Sodium (Coumadin) 10 mg PO 1700 [facility]
[2018-01-11] MEDS: Warfarin Sodium 10 MG TAB PO SCH (15:39)
--- NOTE | 2018-01-11 15:44 | PRG ---
DATE OF SERVICE: 01/11/2018 SUBJECTIVE: Ms. Gutierrez is without complaints. OBJECTIVE: VITAL SIGNS: Temperature is 99.2, pulse 97, blood pressure 135/78. ABDOMEN: Nontender. LABORATORY STUDIES: Hemoglobin is 9.4, white count 7.1, platelet counts are 271. Iron was 12 on adm ission. ASSESSMENT: 1. Severe iron deficiency anemia with heme negative stool on admission and negative EGD except for a large hiatal hernia. Negative colonoscopy. Likely her anemia is related to a large hiatal hernia. Occult loss from Pelon's erosions, although, none were seen at time of endoscopy. There are no si gns of celiac disease. There have been no signs of acute or chronic GI bleeding. 2. DVT with pulmonary embolus, on anticoagulation. I think is at low risk for some type of acute ga strointestinal hemorrhage in light of the endoscopic findings and negative CAT scan. RECOMMENDATIONS: 1. PPI therapy. 2. Iron therapy. 3. Anticoagulation as per Internal Medicine and Oncology for DVT, PE. 4. We recently checked celiac panel, although I think this is quite unlikely and will go ahead and o rder that and follow that up next week. For now, I will follow up from a distance. If I can be of a ny assistance in the patient's care, please do not hesitate to contact. 5. I would recommend continuing PPI therapy daily and large hiatal hernia, prevent Pelon's ulcers and bleeding.
[2018-01-12 05:22] LABS: INR-International Normal Ratio 1.3; Prothrombin Time 16.2 SEC (12.0-14.7)
[2018-01-12 05:43] LABS: Hemoglobin 9.6 g/dL (12.0-16.0)
[2018-01-12] MEDS: Cefdinir 300 MG CAP PO SCH ×2 (09:40→20:35)
[2018-01-12] MEDS: Amlodipine 5 MG TAB PO SCH (09:40)
[2018-01-12] MEDS: Enoxaparin Sodium 80 MG/0.8 ML SYRINGE SC SCH ×2 (09:41→20:36)
[2018-01-12] MEDS: Docusate 100 MG CAP PO SCH ×2 (09:50→20:34)
[2018-01-12 14:10] LABS: EliA Celiac New Method **** NEW METHOD ****
--- NOTE | 2018-01-12 14:17 | PDOC.PN ---
- Subjective Encounter Start Date: 01/12/18 Encounter Start Time: 14:15 Subjective: feels good. no new complaints. no new events overnight -: walked in hallways w Walking program - Objective Resuscitation Status: Resuscitation Status DNR:Do Not Resuscitate MAR Reviewed: Yes Vital Signs & Weight: Vital Signs (12 hours) Temp Pulse Resp BP BP Pulse Ox 01/12/18 13:56 81 16 95 01/12/18 09:42 86 15 95 01/12/18 09:40 86 142/86 H 01/12/18 08:25 98.4 F 86 18 142/86 H 95 01/12/18 08:00 98.4 F 86 18 95 01/12/18 05:57 81 16 94 L 01/12/18 04:30 97.8 F 82 16 142/84 H 90 L 01/12/18 03:30 94 L 01/12/18 03:29 94 L Weight Weight 213 lb 6 oz Most Recent Monitor Data Heart Rate from ECG 86 NIBP 128/65 Respiration from ECG 20 I&O: 01/11/18 01/12/18 01/13/18 06:59 06:59 06:59 Intake Total 610 Balance 610 Result Diagrams: 01/12/18 04:28 01/10/18 06:40 Additional Labs: Laboratory Tests 01/12/18 04:28 Tiss Transglutamin IgA 1.0 Phys Exam - Physical Examination Constitutional: NAD HEENT: PERRLA, moist MMs, sclera anicteric, oral pharynx no lesions Neck: no nodes, no JVD, supple, full ROM Respiratory: no wheezing, no rales, no rhonchi, clear to auscultation bilateral Cardiovascular: RRR, no significant murmur, no rub Gastrointestinal: soft, non-tender, no distention, positive bowel sounds Musculoskeletal: no edema, pulses present Neurological: non-focal, normal sensation, moves all 4 limbs Psychiatric: normal affect, A&O x 3 Skin: no rash Dx/Plan (1) Pulmonary embolism on left Code(s): I26.99 - OTHER PULMONARY EMBOLISM WITHOUT ACUTE COR PULMONALE Status : Acute Comment: Will continue pt on Lovenox 1mg/kg BID, started on Coumadin . cont both for bridging (2) Acute deep vein thrombosis (DVT) of left lower extremity Code(s): I82.402 - ACUTE EMBOLISM AND THOMBOS UNSP DEEP VEINS OF L LOW EXTREM Status: Acute Qualifiers: Affected thrombotic vein of extremity: femoral Qualified Code(s): I82.412 - Acute embolism and thrombosis of left femoral vein Comment: AC for at least 6 months. F/U w PCP for PT/INR check (3) Anemia, iron deficiency Code(s): D50.9 - IRON DEFICIENCY ANEMIA, UNSPECIFIED Status: Acute Qualifiers: Iron deficiency anemia type: other iron deficiency Qualified Code(s): D50.8 - Other iron deficiency anemias Comment: Low iron levels, pathology smear did show microcytois, Appreciate Hematology recs, no source of loss is detected. EGD normal, Normal Colonoscopy. Continue PPI. (4) Chest pain Code(s): R07.9 - CHEST PAIN, UNSPECIFIED Status: Resolved Comment: d/c Nuc stress test, as the reason for chest pain is PE. waiting on echo. (5) HTN (hypertension) Code(s): I10 - ESSENTIAL (PRIMARY) HYPERTENSION Status: Chronic Comment: Continue with home Medications. (6) Pneumonia involving left lung Code(s): J18.9 - PNEUMONIA, UNSPECIFIED ORGANISM Status: Acute Comment: breathing treatment PRN. Low grade fever noted today, no cough or congestion. Will repeat chest xray in 2-3 days. Procalcitonin is low, so less chance of bacterial pneumonia, will d/c IV abx. (7) Breast nodule Code(s): N63.0 - UNSPECIFIED LUMP IN UNSPECIFIED BREAST Status: Chronic Comment: OP Mammography - Plan PT/OT, out of bed/ambulate, DVT proph w/SCDs cont monitoring till INR therapeutic. Cont Lovenox BID till then -: DC home when INR above 2.OK to f/u w PCP on 12/1217 -: will need OP f/u w Hematology & GI for further w/u of [place] -: cont feSO4.H/h stable. no active GIB. -: am labs * . Review of Systems - Review of Systems Constitutional: negative: fever, chills, sweats, weakness, malaise, other ENT: negative: Ear Pain, Ear Discharge, Nose Pain, Nose Discharge, Nose Congestion, Mouth Pain, Mouth Swelling, Throat Pain, Throat Swelling, Other Respiratory: negative: Cough, Dry, Shortness of Breath, Hemoptysis, SOB with Excertion, Pleuritic Pain, Sputum, Wheezing Cardiovascular: negative: chest pain, palpitations, orthopnea, paroxysmal nocturnal dyspnea, edema, light headedness, other Gastrointestinal: negative: Nausea, Vomiting, Abdominal Pain, Diarrhea, Constipation, Melena, Hematochezia, Other Genitourinary: negative: Dysuria, Frequency, Incontinence, Hematuria, Retention , Other Musculoskeletal: negative: Neck Pain, Shoulder Pain, Arm Pain, Back Pain, Hand Pain, Leg Pain, Foot Pain, Other Skin: negative: Rash, Lesions, Juan, Bruising, Other Neurological: negative: Weakness, Numbness, Incoordination, Change in Speech, Confusion, Seizures, Other - Medications/Allergies Allergies/Adverse Reactions: Allergies Allergy/AdvReac Type Severity Reaction Status Date / Time acetaminophen Allergy Verified 01/05/18 05:02 [From Darvocet-N] propoxyphene Allergy Verified 01/05/18 05:02 [From Darvocet-N] Medications: Current Medications Albuterol Sulfate (Ventolin) 2.5 mg NEB Q2H PRN PRN Reason: Wheezing Albuterol/Ipratropium (Duoneb) 3 ml NEB [id number] [facility] Last Admin: 01/12/18 13:56 Dose: 3 ml Amlodipine Besylate (Norvasc) 5 mg PO DAILY [facility] Last Admin: 01/12/18 09:40 Dose: 5 mg Bisacodyl (Dulcolax) 10 mg PO DAILYPRN PRN PRN Reason: Constipation Cefdinir (Omnicef) 300 mg PO BID [facility] Last Admin: 01/12/18 09:40 Dose: 300 mg Clonidine (Catapres) 0.1 mg PO Q4H PRN PRN Reason: SBP>160 Docusate Sodium (Colace) 100 mg PO BID [facility] Last Admin: 01/12/18 09:50 Dose: Not Given Enoxaparin Sodium (Lovenox) 80 mg SC 0900,2100 [facility] Last Admin: 01/12/18 09:41 Dose: 80 mg Ferrous Sulfate (Feosol) 325 mg PO QAM-WM [facility] Hydralazine HCl (Apresoline) 10 mg SLOW IVP Q4H PRN PRN Reason: SBP>170 Iron Sucrose 500 mg/ Sodium (Chloride) 275 mls @ 125 mls/hr IVPB ONE [facility] Ibuprofen (Motrin) 200 mg PO Q6H PRN PRN Reason: Fever/Mild Pain Last Admin: 01/07/18 15:39 Dose: 200 mg Ondansetron HCl (Zofran) 4 mg IVP Q6H PRN PRN Reason: Nausea/Vomiting Last Admin: 01/05/18 18:40 Dose: 4 mg Pantoprazole Sodium (Protonix) 40 mg PO DAILY [facility] Last Admin: 01/12/18 09:40 Dose: 40 mg Senna (Senokot) 2 tab PO HSPRN PRN PRN Reason: Constipation Sodium Chloride (Flush - Normal Saline) 10 ml IVF Q12HR [facility] Last Admin: 01/12/18 09:50 Dose: 10 ml Sodium Chloride (Flush - Normal Saline) 10 ml IVF PRN PRN PRN Reason: Saline Flush Warfarin Sodium (Coumadin) 10 mg PO 1700 [facility] Last Admin: 01/11/18 15:39 Dose: 10 mg
[2018-01-12] MEDS ORDERED: Iron Sucrose Complex 500 MG in Sodium Chloride 0.9% 250 ML 250 ML IVPB SCH (15:45)
[2018-01-12] MEDS: Warfarin Sodium 10 MG TAB PO SCH (17:03)
[2018-01-13 04:23] LABS: INR-International Normal Ratio 2.2; Prothrombin Time 24.4 SEC (12.0-14.7)
[2018-01-13 08:02] LABS: Anion Gap 14 mmol/L (10-20); BUN (Urea Nitrogen) 4 mg/dL (9.8-20.1); Calc. Creatinine Clearance 137 mL/min (70-130); Calcium 8.6 mg/dL (7.8-10.44); Carbon Dioxide 23 mmol/L (23-31); Chloride 105 mmol/L (98-107); Estimated GFR-MDRD Greater than 90; Glucose 83 mg/dL (80-115); Potassium 3.6 mmol/L (3.5-5.1); Sodium 138 mmol/L (136-145)
[2018-01-13] MEDS: Amlodipine 5 MG TAB PO SCH (09:05)
[2018-01-13] MEDS: Cefdinir 300 MG CAP PO SCH (09:05)
[2018-01-13] MEDS: Docusate 100 MG CAP PO SCH ×2 (09:05→19:35)
[2018-01-13] MEDS: Enoxaparin Sodium 80 MG/0.8 ML SYRINGE SC SCH (09:05)
[2018-01-13] MEDS: Ferrous Sulfate 325 MG TAB PO SCH (09:05)
[2018-01-13 09:23] LABS: #Eosinphils 0.4 thou/uL (0.0-0.7); #Monocytes 0.5 thou/uL (0.11-0.59); #Neutrophils 3.9 thou/uL (1.40-6.50); %Eosinophils 6.8 % (0.0-10.0); %Lymphocytes 16.8 % (21.0-51.0); %Monocytes 8.7 % (0.0-10.0); %Neutrophils 67.7 % (42.0-75.0); Hemoglobin 11.1 g/dL (12.0-16.0); Hypochromia SLIGHT = 6-15 cells (100X) (0-5/hpf); MDiff Complete? YES; Mean Corpuscular HGB CONC 29.9 g/dL (32.0-36.0); Mean Corpuscular Hemoglobin 20.5 pg (27.0-31.0); Mean Corpuscular Volume 68.6 fL (78.0-98.0); Mean Platelet Volume 6.5 fL (7.4-10.4); Microcytosis MODERATE=15-30 cells (100X) (0-5/hpf); PLT Morphology Comment Appears Adequate; Platelet Count 310 thou/uL (130-400); Polychromasia SLIGHT = 2-3 cells (100X) (0-2/hpf); RBC Distribution Width 32.4 % (11.5-14.5); Schistocytes SLIGHT = 2-5 cells (100X) (0-1/hpf); Target Cells SLIGHT = 2-5 cells (100X) (0-1/hpf); White Blood Cell (WBC) Count 5.7 thou/uL (4.8-10.8)
--- NOTE | 2018-01-13 15:50 | PDOC.PN ---
- Subjective Encounter Start Date: 01/13/18 (f/u PE) Encounter Start Time: 15:49 Subjective: Pt denies any new sx. Occasionally has chest pain, brief. Able to -: ambulate without difficulty. Normal BM's - Objective Resuscitation Status: Resuscitation Status DNR:Do Not Resuscitate Vital Signs & Weight: Vital Signs (12 hours) Temp Pulse Resp BP BP Pulse Ox 01/13/18 13:41 75 16 96 01/13/18 09:53 79 14 94 L 01/13/18 09:05 79 144/90 H 01/13/18 09:03 98.2 F 79 18 92 L 01/13/18 08:00 98.2 F 79 18 144/90 H 92 L 01/13/18 06:07 71 12 97 Weight Weight 213 lb 6 oz Most Recent Monitor Data Heart Rate from ECG 86 NIBP 128/65 Respiration from ECG 20 I&O: 01/12/18 01/13/18 01/14/18 06:59 06:59 06:59 Intake Total 610 1750 Balance 610 1750 Result Diagrams: 01/13/18 07:24 01/13/18 07:24 Phys Exam - Physical Examination Constitutional: NAD Respiratory: no wheezing, no rales, no rhonchi, clear to auscultation bilateral Cardiovascular: RRR, no significant murmur Gastrointestinal: soft, non-tender, no distention, positive bowel sounds Musculoskeletal: no edema Neurological: non-focal Psychiatric: normal affect Skin: no rash Dx/Plan (1) Anemia, iron deficiency Code(s): D50.9 - IRON DEFICIENCY ANEMIA, UNSPECIFIED Status: Acute Qualifiers: Iron deficiency anemia type: other iron deficiency Qualified Code(s): D50.8 - Other iron deficiency anemias (2) Pulmonary embolism on left Code(s): I26.99 - OTHER PULMONARY EMBOLISM WITHOUT ACUTE COR PULMONALE Status : Acute (3) Breast nodule Code(s): N63.0 - UNSPECIFIED LUMP IN UNSPECIFIED BREAST Status: Chronic (4) HTN (hypertension) Code(s): I10 - ESSENTIAL (PRIMARY) HYPERTENSION Status: Chronic - Plan * INR is 2.2 after 2 doses of coumadin (10 mg x 2). I'm concerned this rapid rise will cause her to be supra-therapeutic tomorrow. Discussed [facility] and will lower the dose to 5 mg tonight, recheck in AM * * Pneumonia - admitting dx. Pt received Rocephin and Azithro from -Dec and started on cefdinir Dec. Given 8 days of abx, afebrile, and the dx of PE , will d/c cefdinir. * * continue home meds * * if INR is therapeutic tomorrow, anticipate d/c to home with f/u monitoring with Dr. Copeland 1-2 days later. If anything else, will need to formulate plan as well as appropriate dose of warfarin. * * gi prophy - not indicated, pt on home ppi * code status DNR * * reviewed plan of care with patient, no qustions or further needs at end of eval.
[2018-01-13] MEDS ORDERED: Warfarin Sodium 5 MG TAB PO SCH (17:00)
[2018-01-14 05:22] LABS: INR-International Normal Ratio 3.1; Prothrombin Time 31.6 SEC (12.0-14.7)
[2018-01-14] MEDS: Amlodipine 5 MG TAB PO SCH (08:15)
[2018-01-14] MEDS: Ferrous Sulfate 325 MG TAB PO SCH (08:15)
[2018-01-14] MEDS: Docusate 100 MG CAP PO SCH (08:16)
[2018-01-14 08:17] VITALS: BP 135/83
[2018-01-14 09:39] VITALS: TEMP 97.8
[2018-01-14 12:31] LABS: INR-International Normal Ratio 2.9; Prothrombin Time 30.3 SEC (12.0-14.7)
--- NOTE | 2018-01-14 14:40 | DIS ---
DATE OF ADMISSION: 01/05/2018 DATE OF DISCHARGE: 01/14/2018 CONSULTANTS: 1. Dr. Varela of Gastroenterology. 2. Jud Dailey, nurse practitioner with Hematology/Oncology. PROCEDURES PERFORMED: 1. EGD 2. colonoscopy 3. Transfusion 3 units packed red blood cell FINAL DIAGNOSES: 1. Pulmonary embolism. 2. Chest pain secondary to above, presumptively treated for pneumonia. 3. Severe iron deficiency anemia requiring transfusion. 4. Hiatal hernia. 5. Essential hypertension. 6. 5 mm pulmonary nodule right lower lobe. SECONDARY DIAGNOSIS: 1. GERD. NEW MEDICATIONS: 1. Pantoprazole 40 mg daily. 2. Warfarin 2.5 mg every evening, to be adjusted by Dr. Copeland based on INR testing. 3. Ferrous sulfate 325 mg once daily. 4. Colace 100 mg b.i.d. 5. Amlodipine 5 mg daily. DISCHARGE MEDICATION: Discontinued medication is omeprazole. HISTORY OF PRESENT ILLNESS: Ms. Gutierrez is a 62-year-old female with the above medical problems who woke up with chest pain radiating to her back, progressing down her left arm. She has also been having dyspnea with exertion for a few weeks and coughing spells. In addition, she had been feeling cold, complaining of anorexia and noticing some black tarry stools. In the emergency room, she was found to have hemoglobin of 6.4 and hospitalist called for admission. HOSPITAL COURSE: The patient was transfused a unit of blood and GI consultation was performed. She underwent endoscopy which demonstrated a moderate size hiatal hernia without erosion, normal stomach, esophagus and duodenum. She later underwent colonoscopy which was normal, no etiology for the iron deficiency anemia. In total she was transfused 3 units of packed red blood cells and there was no evidence of bleeding from any source. The patient was also started on antibiotics of Rocephin and azithromycin for concern of pneumonia. She completed an 8-day course total of antibiotic therapy , has been afebrile and overall doing well. On the day after admission, she underwent CT angiogram which identified extensive pulmonary emboli involving the left lower lobe with a few filling defects in the right lower lobe, pulmonary arteries also suggesting pulmonary emboli. She has a small or moderate sized left pleural effusion, and a noncalcified pulmonary nodule within the right lower lobe. For this, she was started on Lovenox followed by the initiation of Coumadin on 01/11/2018. ( Coumadin chosen due to cost for patient of other medications.) She has thus far received 3 doses of Coumadin, yesterday after her second dose, her INR was 2.2, after her third dose today, it is 3.1. Given the rapid increase of her INR , the dosing was decreased to 5 mg yesterday. (The first 2 doses were 10 mg each ) In conjunction with the pharmacist, patient will be discharged on 2.5 mg of Coumadin, and follow up with her primary care provider in 2 days for an INR check and adjustment of the medication. The patient is asymptomatic, ambulating on room air, overall doing well. She has remained in the hospital due to the rapid rise of her Coumadin level after 2 doses to further monitor her INR given this holiday weekend. I repeated her INR this morning 8 hours after the first check which was 2.9, earlier today it was 3.1. Given that this appears to be a plateau and the patient is hemodynamically normal and asymptomatic, I do think that patient can be discharged to home. I did call her primary care provider, Dr. Copeland, and discussed her care, plan for discharge, as well as follow up in 2 days. He reports his office will be able to draw her blood, and he will be able to adjust the warfarin with a goal INR between 2 and 3. The patient is overall doing well. Does meet criteria for discharge to home. She has been educated on Coumadin diet, seek care precautions, including that this diagnosis can be fatal even with proper treatment and for this reason to go to the emergency room with any concerns. We also discussed follow up instructions and the monitoring that will be necessary. Ms. Gutierrez has a new diagnosis of hypertension and her blood pressures are in the 140s-150s. She was started on 5 mg of amlodipine with improved control and will be discharged with this. An incidental finding of 5 mm pulmonary nodule was found on CT scan which will need monitoring. PHYSICAL EXAMINATION: VITAL SIGNS: On day of discharge, her blood pressure 135/83, pulse 89, respirations 14, saturations 96% on room air, temperature 97.8. GENERAL: Awake, alert, responsive, in no apparent distress, able to speak in full sentences. HEENT: Her pupils are equal and round. NECK: Supple, nontender. LYMPHATICS: No palpable cervical or supraclavicular lymphadenopathy. LUNGS: Clear, some decreased breath sounds at the left base. No audible wheezing, rhonchi or rales. HEART: Normal S1, S2, regular rate and rhythm. No significant murmur. ABDOMEN: Soft with present bowel sounds, nontender, nondistended. EXTREMITIES: No pitting edema. [facility] FINDINGS AND TEST RESULTS: 1. On admission, her CBC was 12, 6.4, 23, 261. 2. CBC today; 5.7, 11.1, 37, 310 with an MCV of 68.6. 3. INR 1.2 on 01/11/2018, 1.3 on 01/12/2018, 2.2 on 01/13/2018, 3.1 at 4:00 a.m. this morning and 2.9 at 12:00 p.m. this afternoon. 4. Renal panel 138, 3.6, 105, 23, 4, 0.65, 83. 5. Iron 12, TIBC 356, percent saturation is 3. 6. Ferritin 10. 7. Troponin x3 were negative. 8. CRP on admission 15. 9. LFTs on admission were normal. 10. Chest x-ray on admission less inspiratory effort with some minimal blunting of both costophrenic angles and minimal parenchymal changes, particularly in the left base, possibly mild pneumonitis or atypical pneumonia. Short term followup recommended. 11. CT angiogram on 01/06/2018 shows bilateral lower lobe and right middle lobe pulmonary emboli, much greater on the left, mild cardiomegaly, small pericardial effusion, small to moderate size left pleural effusion, interstitial and parenchymal opacities within the left lower lobe which may be related to atelectasis or infection. Follow up is recommended, noncalcified 5 mm pulmonary nodule in the right lower lobe, moderate sized hiatal hernia. 12. Colonoscopy on 01/10/2018, normal, no etiology for iron deficiency anemia. 13. EGD report on 01/05/2018, moderate sized hiatal hernia without Pelon ulcers or erosions, normal stomach, otherwise, normal esophagus, normal duodenum to the third portion with normal appearing villi. No evidence of villous blunting or scalloping of the folds. Recommendation was to consider elective colonoscopy. 14. Abdomen and pelvis CT on 01/08/2018, no significant abnormalities of the abdomen are demonstrated to explain the patient's symptoms, left pleural fluid and basilar atelectasis have increased since the recent chest CT, large hiatal hernia. 15. Blood cultures negative x5 days. 16. Stool occult blood negative on 01/05/2018. 17. Urine culture showed yeast species less than 5000 CFUs. FOLLOWUP: With Dr. Copeland in 2 days (Monday, Jan 16) around 8:30 in the morning for an INR check, adjustment of medications. An appointment has also been scheduled for the following week - please see discharge information for date/time - to discuss other health issues. The patient will also need a follow up CT scan in 6-12 months to monitor the pulmonary nodule. DIET: Coumadin specific and patient has been received instructions. ACTIVITY: As tolerated. I reviewed with patient and her this hospitalization, the diagnosis, that she is on a blood thinner and the precautions to watch for and to consider with her activities, seek care precautions, and followup instructions. They demonstrate understanding and there were no questions at end of evaluation. Total time coordinating discharge is 45 minutes. JEFFRY
== END 2018-01-14 13:56 | disposition home or self-care (01) | DRG 175 ==
LOC: ERS 01:29 → 2SE 04:41 → EEVIPCON 04:41 → T4-B 01-11 23:58
PROVIDERS: ADMIT Internal Medicine; ATTEND Internal Medicine
PROC: 0DJ08ZZ Inspection of Upper Intestinal Tract, Via Natural or Artificial Opening Endoscopic (ICD-10-PCS; principal; 2018-01-05)
PROC: 30233N1 Transfusion of Nonautologous Red Blood Cells into Peripheral Vein, Percutaneous Approach (ICD-10-PCS; 2018-01-05)
PROC: 0DJD8ZZ Inspection of Lower Intestinal Tract, Via Natural or Artificial Opening Endoscopic (ICD-10-PCS; 2018-01-10)
DX: I26.99 Other pulmonary embolism without acute cor pulmonale (principal); J18.9 Pneumonia, unspecified organism; I82.412 Acute embolism and thrombosis of left femoral vein; K44.9 Diaphragmatic hernia without obstruction or gangrene; D50.9 Iron deficiency anemia, unspecified; I10 Essential (primary) hypertension; R91.1 Solitary pulmonary nodule; K21.9 Gastro-esophageal reflux disease without esophagitis; N63.10 Unspecified lump in the right breast, unspecified quadrant; Z66 Do not resuscitate; Z88.6 Allergy status to analgesic agent
CPT/HCPCS: 36415; 36430; 71045; 71275; 74177; 80048; 80053; 81001; 81003; 81015; 82274; 82553; 82728; 83516; 83540; 83550; 84145; 84484; 85014; 85018; 85025; 85046; 85060; 85379; 85610; 86140; 86850; 86900; 86901; 87040; 87086; 90471; 90732; 93005; 93010; 93306; 93970; 94640; 96360; A4216; C9113; G0009; J0456; J0696; J1650; J1756; J2001; J2405; J2704; J2916; J7050; J7620; P9016

== ENCOUNTER 2018-02-13 08:40 | Outpatient (CLI) | payer OTHER ==
--- NOTE | 2018-02-13 10:09 | ULT ---
LIMITED RIGHT BREAST ULTRASOUND: Date: 02-13-18 Provided Clinical History: Clear nipple discharge, right breast palpable abnormality. FINDINGS: Limited sonographic interrogation of the right breast in the region of palpable concern demonstrates no significant abnormality. Dilated retroareolar ducts are demonstrated with a focal areas of rounded echogencity alteration with in one of these retroareolar ducts measuring about 4 mm. Flow is not definitely demonstrated on the d oppler image. IMPRESSION: Filling defect within the retroareolar ductal system on the right. Though no definite flow is seen on the doppler imaging, in the setting of nipple discharge this would be suspicious for neoplasm such a s papillary neoplasm. Surgical consultation is recommended. MRI may prove useful for further evaluati on if indicated. BI RADS 4 - suspicious. POS: [facility]
== END 2018-02-13 08:41 | disposition home or self-care (01) ==
LOC: BICMAMMO 08:40
PROVIDERS: ATTEND Obstetrics & Gynecology
DX: N60.19 Diffuse cystic mastopathy of unspecified breast (principal); N64.89 Other specified disorders of breast
CPT/HCPCS: 77066; G0279

== ENCOUNTER 2018-04-09 10:30 | Outpatient (CLI) | payer SELFPAY ==
[2018-04-09 11:49] LABS: INR-International Normal Ratio 1.6; PTT 32.7 SEC (22.9-36.1); Prothrombin Time 19.4 SEC (12.0-14.7)
[2018-04-09 12:16] LABS: ALT (SGPT) 17 U/L (8-55); AST (SGOT) 25 U/L (5-34); Albumin 4.4 g/dL (3.4-4.8); Alkaline Phosphatase 79 U/L (40-150); Anion Gap 16 mmol/L (10-20); BUN (Urea Nitrogen) 16 mg/dL (9.8-20.1); Bilirubin, Total 0.7 mg/dL (0.2-1.2); Calc. Creatinine Clearance 0 mL/min (70-130); Calcium 9.4 mg/dL (7.8-10.44); Carbon Dioxide 23 mmol/L (23-31); Chloride 106 mmol/L (98-107); Estimated GFR-MDRD 67; Globulin 3.7 g/dL (2.4-3.5); Glucose 95 mg/dL (80-115); Potassium 4.8 mmol/L (3.5-5.1); Protein, Total 8.1 g/dL (6.0-8.3); Sodium 140 mmol/L (136-145)
[2018-04-09 12:19] LABS: #Eosinphils 0.1 thou/uL (0.0-0.7); #Lymphocytes 1.3 thou/uL (1.20-3.40); #Monocytes 0.5 thou/uL (0.11-0.59); %Basophils 0.7 % (0.0-1.0); %Eosinophils 1.9 % (0.0-10.0); %Lymphocytes 18.1 % (21.0-51.0); %Monocytes 7.3 % (0.0-10.0); %Neutrophils 72.1 % (42.0-75.0); Hemoglobin 14.1 g/dL (12.0-16.0); Mean Corpuscular HGB CONC 31.7 g/dL (32.0-36.0); Mean Corpuscular Hemoglobin 27.6 pg (27.0-31.0); Mean Corpuscular Volume 86.9 fL (78.0-98.0); Mean Platelet Volume 10.7 fL (7.4-10.4); Platelet Count 317 thou/uL (130-400); Red Blood Cell (RBC) Count 5.12 mill/uL (4.20-5.40); White Blood Cell (WBC) Count 6.9 thou/uL (4.8-10.8)
== END 2018-04-09 10:31 | disposition home or self-care (01) ==
LOC: LABBT 10:30
PROVIDERS: ATTEND Surgery
DX: Z01.818 Encounter for other preprocedural examination (principal); N63.10 Unspecified lump in the right breast, unspecified quadrant
CPT/HCPCS: 80053; 85025; 85610; 85730; 93005; 93010

== ENCOUNTER 2018-04-12 06:40 | Day surgery (SDC) | payer OTHER, SELFPAY ==
[2018-04-09 10:47] VITALS: BMI 34.3
[2018-04-12] MEDS ORDERED: Sodium Bicarbonate 2.5 MEQ/5 ML VIAL ONE (07:47)
[2018-04-12] MEDS ORDERED: CEFAZOLIN 2 GM/50 ML BAG ONE (08:45)
[2018-04-12 08:54] LABS: INR-International Normal Ratio 1.3; PTT 35.2 SEC (22.9-36.1)
--- NOTE | 2018-04-12 10:43 | ULT ---
ULTRASOUND GUIDED NEEDLE LOCALIZATION OF RIGHT BREAST LESION: Date: 04/12/18 HISTORY: Patient has had some persistent clear nipple discharge and a right breast palpable abnormality. COMPARISON: Ultrasound examination of 02/13/18. TECHNIQUE/FINDINGS: After informed consent was obtained, the patient was prepped and draped in the normal sterile fashion . Local anesthesia obtained with 1% Xylocaine mixed with sodium bicarb. A 5 [place] needle was used for the localization. A more medial approach was used. The needle was passed through the area of duct al prominence and the area of the filling defect. There are other somewhat dilated ducts and other co mplex cystic structures in this area. The needle was centered within this region. The patient tolerat ed the procedure well. There were no immediate complications. IMPRESSION: Ultrasound directed needle localization of retroareolar breast lesion. POS: [facility]
[2018-04-12] MEDS ORDERED: Lidocaine 2% PF 5 ML VIAL ONE (10:56)
[2018-04-12] MEDS ORDERED: Bupivacaine/Epinephrine 0.25% 30 ML VIAL ONE (10:56)
[2018-04-12] MEDS ORDERED: Fentanyl 100 MCG/2 ML VIAL ONE ×2 (11:00→11:22)
[2018-04-12] MEDS ORDERED: PROPOFOL 200 MG/20 ML VIAL ONE (11:57)
[2018-04-12] MEDS ORDERED: Dexamethasone 20 MG/5 ML VIAL ONE (11:57)
[2018-04-12] MEDS ORDERED: Ondansetron PF 4 MG/2 ML Vial ONE (11:57)
[2018-04-12] MEDS ORDERED: Lidocaine 1% PF 5 ML VIAL ONE (11:57)
--- NOTE | 2018-04-12 16:14 | MMO ---
SPECIMEN RADIOGRAPH: Date: 04/12/18 HISTORY: Patient had a needle localization performed of a palpable area in the retroareolar region in the [facility] t breast. FINDINGS: Single specimen radiograph is present. There are no definite identifying calcifications or other feat ures that would definitely suggest that the soft tissue lesion that was localized under ultrasound is on the breast specimen, although there are areas of nodularity which are probably indicative of the area in question. IMPRESSION: Specimen radiograph. No identifying calcifications are present. There are some areas of nodularity wi thin the breast specimen, probably corresponding to the soft tissue findings seen on the ultrasound. POS: [facility]
--- NOTE | 2018-04-13 15:33 | OP ---
DATE OF PROCEDURE: 04/12/2018 PREOPERATIVE DIAGNOSIS: Right breast mass. POSTOPERATIVE DIAGNOSIS: Right breast mass. PROCEDURE: Excision of right breast mass after needle localization. ANESTHESIA: General. ESTIMATED BLOOD LOSS: Minimal. COMPLICATIONS: None. SPECIMEN: Right breast mass, marked with two short superior and one long lateral. TECHNIQUE: The patient was taken to the operating room and laid supine on the operating room table. After general anesthetic was obtained, the right chest was prepped and draped in a sterile fashion. The patient had undergone preop placement of needle localization wire. Incision was made on the edge of the areola around the needle localization wire. Tissue was removed superior, inferior, medially, and laterally around the tip of the needle localization wire. Specimen was sent to specimen x-ray, which revealed the radiologic abnormality present. The wound was irrigated. Local anesthetic was applied. The wound was closed using 3-0 Vicryl, 4-0 Monocryl, and Dermabond. The patient was sent to Recovery in stable condition. All instrument counts, needle counts, and lap counts are correct. Job ID: [id number]
== END 2018-04-12 14:23 | disposition home or self-care (01) ==
LOC: SDC 06:40
PROVIDERS: ATTEND Surgery
PROC: 0HBT0ZZ Excision of Right Breast, Open Approach (ICD-10-PCS; principal; 2018-04-12)
DX: D24.1 Benign neoplasm of right breast (principal); E78.5 Hyperlipidemia, unspecified; F32.9 Major depressive disorder, single episode, unspecified; I10 Essential (primary) hypertension; Z86.711 Personal history of pulmonary embolism; Z88.8 Allergy status to other drugs, medicaments and biological substances; Z79.01 Long term (current) use of anticoagulants; Z79.899 Other long term (current) drug therapy
CPT/HCPCS: 19285; 76098; 85610; 85730; 88307; 88341; 88342; J1100; J2001; J2405; J2704; J3010; Q9968

== ENCOUNTER 2018-10-24 09:35 | Emergency (ER) | payer OTHER ==
--- NOTE | 2018-10-24 10:08 | RAD ---
RIGHT KNEE 4 VIEWS: Date: 10/24/18 HISTORY: Injury with pain to right knee. FINDINGS: Mild degenerative changes are noted. Medial and lateral joint spaces are preserved. No evidence of ac dana fracture. No significant joint effusion. IMPRESSION: No acute abnormality. POS: [facility]
== END 2018-10-24 11:20 | disposition home or self-care (01) ==
LOC: ERS 09:35
DX: S80.01XA Contusion of right knee, initial encounter (principal); I10 Essential (primary) hypertension; K21.9 Gastro-esophageal reflux disease without esophagitis; Z79.899 Other long term (current) drug therapy; W19.XXXA Unspecified fall, initial encounter

== ENCOUNTER 2018-11-07 08:41 | Outpatient (CLI) | payer OTHER ==
--- NOTE | 2018-11-07 09:35 | MRI ---
MRI Lower Ext Jt Rt WO Con HISTORY: Acute right knee pain. Status post fall October 23. Anterior knee pain distal to patella. COMPARISON: None. FINDINGS: The anterior as well as posterior cruciate ligaments are intact. There is mild blunting to the free edge of the body of the lateral meniscus. There is a more severely truncated appearance to the body of the medial meniscus also with meniscal subluxation leg loss of strength. The medial and lateral collateral ligaments and iliotibial band regions appear unremarkable. The patellar articular cartilage is intact. The medial and lateral patellar retinaculum and quadricep s and patellar tendons are normal other than very minimal patellar tendinosis at the level of the inferior pole of patella. No significant joint effusion. There is mild articular cartilage loss of the medial compartment knee. IMPRESSION: 1. Chronic appearing blunting to the body of the lateral meniscus. 2. Moderately truncated free edge of the body of the medial meniscus also with meniscal protrusion re lated to loss of hoop strength related to what is probably more of a chronic tear.
== END 2018-11-07 08:42 | disposition home or self-care (01) ==
LOC: BICMRI 08:41
PROVIDERS: ATTEND Obstetrics & Gynecology
DX: M25.561 Pain in right knee (principal)

== ENCOUNTER 2019-05-16 09:56 | Emergency (ER) | payer SELFPAY ==
[2019-05-16 11:12] LABS: #Lymphocytes 0.7 thou/uL (1.20-3.40); #Monocytes 0.5 thou/uL (0.11-0.59); #Neutrophils 3.4 thou/uL (1.40-6.50); %Basophils 0.6 % (0.0-1.0); %Eosinophils 0.5 % (0.0-10.0); %Lymphocytes 14.3 % (21.0-51.0); %Monocytes 11.1 % (0.0-10.0); %Neutrophils 73.5 % (42.0-75.0); Hemoglobin 7.6 g/dL (12.0-16.0); Mean Corpuscular HGB CONC 27.6 g/dL (32.0-36.0); Mean Corpuscular Hemoglobin 14.5 pg (27.0-31.0); Mean Corpuscular Volume 52.6 fL (78.0-98.0); Mean Platelet Volume 7.9 fL (7.4-10.4); Platelet Count 234 thou/uL (130-400); RBC Distribution Width 21.1 % (11.5-14.5); Red Blood Cell (RBC) Count 5.23 mill/uL (4.20-5.40); White Blood Cell (WBC) Count 4.6 thou/uL (4.8-10.8)
[2019-05-16 11:20] LABS: INR-International Normal Ratio 1.6; Prothrombin Time 19.1 SEC (12.0-14.7)
--- NOTE | 2019-05-16 11:30 | RAD ---
RADIOGRAPH CHEST 2 VIEWS: DATE: 05/16/2019 HISTORY: 63-year-old female with dyspnea. FINDINGS: There is no airspace density, pulmonary edema, pleural effusion, pneumothorax, or cardiomegaly. There is a 7 x 7.5 x 8.5 cm retrocardiac intrathoracic mass. IMPRESSION: 1. No acute cardiopulmonary findings. 2. Moderate to large hiatal hernia.
[2019-05-16 11:44] LABS: ALT (SGPT) Less than 7 U/L (8-55); AST (SGOT) 33 U/L (5-34); Albumin 4.2 g/dL (3.4-4.8); Alkaline Phosphatase 70 U/L (40-110); Anion Gap 15 mmol/L (10-20); BUN (Urea Nitrogen) 10 mg/dL (9.8-20.1); Bilirubin, Total 0.6 mg/dL (0.2-1.2); Calc. Creatinine Clearance 0 mL/min (70-130); Calcium 8.9 mg/dL (7.8-10.44); Carbon Dioxide 19 mmol/L (23-31); Chloride 106 mmol/L (98-107); Estimated GFR-MDRD 75; Globulin 3.4 g/dL (2.4-3.5); Glucose 97 mg/dL (80-115); Potassium 4.4 mmol/L (3.5-5.1); Protein, Total 7.6 g/dL (6.0-8.3); Sodium 136 mmol/L (136-145)
[2019-05-16 11:53] LABS: Hypochromia MARKED = >30 cells (100X) (0-5/hpf); MDiff Complete? YES; Microcytosis MARKED = >30 cells (100X) (0-5/hpf); Ovalocytes SLIGHT = 2-5 cells (100X) (0-1/hpf); Platelet Morphology Comment Appears Adequate; Polychromasia MODERATE = 3-4 cells (100X) (0-2/hpf); Reflex for Review?? NO; Target Cells SLIGHT = 2-5 cells (100X) (0-1/hpf); Tear Drops SLIGHT = 2-5 cells (100X) (0-1/hpf)
[2019-05-16] MEDS ORDERED: Doxycycline 100 MG CAP PO SCH (12:30)
== END 2019-05-16 13:35 | disposition home or self-care (01) ==
LOC: ERS 09:56
DX: J18.9 Pneumonia, unspecified organism (principal); K44.9 Diaphragmatic hernia without obstruction or gangrene; K21.9 Gastro-esophageal reflux disease without esophagitis; I10 Essential (primary) hypertension; Z86.711 Personal history of pulmonary embolism; Z86.718 Personal history of other venous thrombosis and embolism; Z79.01 Long term (current) use of anticoagulants; Z79.899 Other long term (current) drug therapy
CPT/HCPCS: 36415; 71046; 80053; 83605; 84484; 85025; 85610; 85730; 87040; 93005

== ENCOUNTER 2019-11-19 09:13 | Outpatient (CLI) | payer OTHER ==
--- NOTE | 2019-11-19 09:44 | MMO ---
Bilateral MAMMO Bilat Diag [facility]. CLINICAL HISTORY: Patient is 64 years old and is seen for diagnostic exam. The patient has no family history of breast cancer. The patient has no personal history of cancer. The patient has a history of right Excisional Biopsy in March, - benign. VIEWS: The views performed were: bilateral craniocaudal with tomosynthesis; bilateral mediolateral oblique with tomosynthesis; and bilateral mediolateral with tomosynthesis. FILMS COMPARED: The present examination has been compared to prior imaging studies performed at [facility] on 03/09/2005, 07/30/2010, 09/26/2011 and 02/13/2018. This study has been interpreted with the assistance of computer-aided detection. MAMMOGRAM FINDINGS: There are scattered fibroglandular densities. There are vascular calcifications seen in both breasts. There are no suspicious masses, suspicious calcifications, or new areas of architectural distortion. IMPRESSION: A ROUTINE FOLLOW-UP MAMMOGRAM IN 1 YEAR IS RECOMMENDED. THE RESULTS OF THIS EXAM WERE SENT TO THE PATIENT. ACR BI-RADS Category 2 - Benign finding MAMMOGRAPHY NOTE: 1. A negative mammogram report should not delay a biopsy if a dominant of clinically suspicious mass is present. 2. Approximately 10% to 15% of breast cancers are not detected by mammography. 3. Adenosis and dense breasts may obscure an underlying neoplasm. Reported by: LEONID FERREIRA MD Electonically Signed: [id number]
== END 2019-11-19 09:14 | disposition home or self-care (01) ==
LOC: BICMAMMO 09:13
PROVIDERS: ATTEND Nurse Practitioner Family
DX: N63.10 Unspecified lump in the right breast, unspecified quadrant (principal)
CPT/HCPCS: 77066; G0279

== ENCOUNTER 2020-02-25 09:05 | Outpatient (CLI) | payer OTHER ==
--- NOTE | 2020-02-25 10:04 | ULT ---
EXAM: Left lower extremity venous Doppler US HISTORY: left lower extremity pain COMPARISON: 01/07/2018 FINDINGS: Grayscale, color-flow, Doppler evaluation, spectral analysis of the left lower extremity venous struc tures is performed with 2-D imaging. The left common femoral, superficial femoral, popliteal, posterior tibial, proximal greater saphenous and profunda femoral veins are imaged. Interval improvement is seen since the previous study. There there is residual nonocclusive thrombosi s in the popliteal and femoral veins. Remainder of the deep venous system is otherwise patent. 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
== END 2020-02-25 09:06 | disposition home or self-care (01) ==
LOC: BICULT 09:05
PROVIDERS: ATTEND Nurse Practitioner Family
DX: M79.605 Pain in left leg (principal); I82.432 Acute embolism and thrombosis of left popliteal vein; I82.412 Acute embolism and thrombosis of left femoral vein

== ENCOUNTER 2020-10-27 07:00 | Emergency (ER) | payer MEDICARE | END 2020-10-27 09:40 | disposition home or self-care (01) | LOC: ERS 07:00 | DX: S20.20XA Contusion of thorax, unspecified, initial encounter (principal); I10 Essential (primary) hypertension; R11.0 Nausea; W18.30XA Fall on same level, unspecified, initial encounter | CPT/HCPCS: 70450; 72125 ==

== ENCOUNTER 2021-12-15 10:35 | Outpatient (CLI) | payer MEDICARE, MEDICAID | END 2021-12-15 10:36 | disposition home or self-care (01) | LOC: BICMAMMO 10:35 | PROVIDERS: ATTEND Nurse Practitioner Family | DX: Z12.31 Encounter for screening mammogram for malignant neoplasm of breast (principal); Z91.89 Other specified personal risk factors, not elsewhere classified | CPT/HCPCS: 77063; 77067 ==

== ENCOUNTER 2022-01-28 08:26 | Outpatient (CLI) | payer MEDICARE, MEDICAID ==
[2022-01-28] MEDS ORDERED: Iopamidol 370 76% 100 ML VIAL ONE (09:09)
== END 2022-01-28 08:27 | disposition home or self-care (01) ==
LOC: CT 08:26
PROVIDERS: ATTEND Internal Medicine Cardiovascular Disease
DX: I26.99 Other pulmonary embolism without acute cor pulmonale (principal); K44.9 Diaphragmatic hernia without obstruction or gangrene
CPT/HCPCS: 71275; 82565; Q9967

== ENCOUNTER 2022-05-23 09:21 | Outpatient (CLI) | payer MEDICARE, MEDICAID | END 2022-05-23 09:22 | disposition home or self-care (01) | LOC: RAD 09:21 | PROVIDERS: ATTEND Internal Medicine Critical Care Medicine | DX: R06.00 Dyspnea, unspecified (principal); I51.7 Cardiomegaly; K44.9 Diaphragmatic hernia without obstruction or gangrene | CPT/HCPCS: 71046 ==

== ENCOUNTER 2022-06-10 10:06 | Outpatient (CLI) | payer MEDICARE, MEDICAID | END 2022-06-10 10:07 | disposition home or self-care (01) | LOC: NM 10:06 | PROVIDERS: ATTEND Internal Medicine Critical Care Medicine | DX: R06.00 Dyspnea, unspecified (principal); K44.9 Diaphragmatic hernia without obstruction or gangrene; I51.7 Cardiomegaly | CPT/HCPCS: 71046; 78451; A9540 ==

== ENCOUNTER 2022-06-22 09:48 | Outpatient (CLI) | payer OTHER, MEDICAID ==
[2022-06-22] MEDS ORDERED: Iopamidol-370 76% 500 ML 1 ML ONE (15:04)
== END 2022-06-22 09:49 | disposition home or self-care (01) ==
LOC: BICCT 09:48
PROVIDERS: ATTEND Internal Medicine Critical Care Medicine
DX: I26.99 Other pulmonary embolism without acute cor pulmonale (principal); K44.9 Diaphragmatic hernia without obstruction or gangrene; R91.1 Solitary pulmonary nodule; I51.7 Cardiomegaly; I31.39 Other pericardial effusion (noninflammatory)
CPT/HCPCS: 71275; Q9967

== ENCOUNTER 2022-11-02 09:22 | Outpatient (CLI) | payer OTHER, MEDICAID | END 2022-11-02 09:23 | disposition home or self-care (01) | LOC: RAD 09:22 | PROVIDERS: ATTEND Internal Medicine Critical Care Medicine | DX: R06.00 Dyspnea, unspecified (principal); I51.7 Cardiomegaly; K44.9 Diaphragmatic hernia without obstruction or gangrene | CPT/HCPCS: 71046 ==

== ENCOUNTER 2022-12-14 19:30 | Outpatient (CLI) | payer OTHER, MEDICAID | END 2022-12-14 19:31 | disposition home or self-care (01) | LOC: SLEEPLAB 19:30 | PROVIDERS: ATTEND Internal Medicine Critical Care Medicine | DX: G47.33 Obstructive sleep apnea (adult) (pediatric) (principal); F32.A Depression, unspecified; R06.83 Snoring; I11.0 Hypertensive heart disease with heart failure; I50.30 Unspecified diastolic (congestive) heart failure; I49.9 Cardiac arrhythmia, unspecified; E78.5 Hyperlipidemia, unspecified; E61.1 Iron deficiency; J45.909 Unspecified asthma, uncomplicated; I26.99 Other pulmonary embolism without acute cor pulmonale; R91.1 Solitary pulmonary nodule | CPT/HCPCS: 95810 ==

== ENCOUNTER 2023-03-15 13:17 | Outpatient (CLI) | payer OTHER, MEDICAID | END 2023-03-15 13:18 | disposition home or self-care (01) | LOC: BICMAMMO 13:17 | PROVIDERS: ATTEND Nurse Practitioner Family | DX: Z12.31 Encounter for screening mammogram for malignant neoplasm of breast (principal); Z91.89 Other specified personal risk factors, not elsewhere classified | CPT/HCPCS: 77063; 77067 ==

== ENCOUNTER 2023-08-07 08:06 | Inpatient (IN) | payer OTHER, MEDICAID ==
[2023-08-07 08:52] LABS: #Basophils 0.04 10x3/uL (0.0-0.2); %Basophils 0.6 % (0.0-1.0); %Eosinophils 0.4 % (0.0-10.0); %Lymphocytes 20.4 % (21.0-51.0); %Monocytes 7.8 % (0.0-10.0); %Neutrophils 70.5 % (42.0-75.0); Hematocrit 46.8 % (36.0-47.0); Hemoglobin 15.5 g/dL (12.0-16.0); Mean Corpuscular HGB CONC 33.1 g/dL (32.0-36.0); Mean Corpuscular Hemoglobin 30.3 pg (27.0-31.0); Mean Corpuscular Volume 91.4 fL (78.0-98.0); Platelet Count 242 10x3/uL (130-400); RBC Distribution Width 14.7 % (11.5-14.5); Red Blood Cell (RBC) Count 5.12 mill/uL (4.20-5.40)
[2023-08-07 09:08] LABS: ALT (SGPT) 44 U/L (8-55); AST (SGOT) 30 U/L (5-34); Albumin 4.2 g/dL (3.4-4.8); Alkaline Phosphatase 87 U/L (40-110); Anion Gap 15 mmol/L (10-20); BUN (Urea Nitrogen) 13 mg/dL (9.8-20.1); Bilirubin, Total 1.7 mg/dL (0.2-1.2); Calc. Creatinine Clearance 0 mL/min (70-130); Calcium 9.3 mg/dL (7.8-10.44); Carbon Dioxide 21 mmol/L (23-31); Chloride 106 mmol/L (98-107); Estimated GFR 71; Glucose 95 mg/dL (80-115); Lipase 17 U/L (8-78); Potassium 4.7 mmol/L (3.5-5.1); Protein, Total 7.2 g/dL (5.8-8.1); Sodium 137 mmol/L (136-145)
[2023-08-07 09:12] LABS: Troponin I Less than 0.010 ng/mL (< 0.028)
[2023-08-07] MEDS ORDERED: Metoclopramide HCl 10 MG TAB ONE (09:27)
[2023-08-07] MEDS ORDERED: Acetaminophen 500 MG TAB ONE (09:27)
[2023-08-07] MEDS ORDERED: Iopamidol-370 76% 500 ML MDV (1 ML CHARGE) ONE (10:11)
[2023-08-07] MEDS ORDERED: Morphine 4 MG/ML VIAL ONE (10:39)
[2023-08-07] MEDS ORDERED: Ondansetron PF 4 MG/2 ML Vial ONE (10:39)
[2023-08-07] MEDS ORDERED: Senokot S 8.6-50 MG TAB PO PRN (12:09)
[2023-08-07] MEDS ORDERED: Calcium Carbonate 500 MG ChewTAB PO PRN (12:09)
[2023-08-07] MEDS ORDERED: Acetaminophen 325 MG TAB PO PRN (12:09)
[2023-08-07] MEDS ORDERED: HYDROcodone/Acetaminophen 5/325 mg Tablet PO PRN (12:09)
[2023-08-07] MEDS ORDERED: Ipratropium/Albuterol 3 ML NEB NEB PRN (12:30)
[2023-08-07 13:03] LABS: Troponin I 0.015 ng/mL (< 0.028)
[2023-08-07] MEDS ORDERED: Furosemide 40 MG (4 mL) VIAL ONE (14:00)
[2023-08-07] MEDS: Furosemide 40 MG (4 mL) VIAL SLOW IVP SCH (14:20)
[2023-08-07 14:35] VITALS: BMI 35.8
[2023-08-07 17:27] LABS: Troponin I Less than 0.010 ng/mL (< 0.028)
[2023-08-07] MEDS: Ondansetron PF 4 MG/2 ML Vial IVP PRN (19:19)
[2023-08-07] MEDS: Apixaban 5 MG TAB PO SCH (20:33)
[2023-08-08 05:23] LABS: #Basophils 0.04 10x3/uL (0.0-0.2); %Basophils 0.7 % (0.0-1.0); %Eosinophils 0.7 % (0.0-10.0); %Lymphocytes 24.5 % (21.0-51.0); %Neutrophils 63.9 % (42.0-75.0); Hematocrit 44.8 % (36.0-47.0); Hemoglobin 14.6 g/dL (12.0-16.0); Mean Corpuscular HGB CONC 32.6 g/dL (32.0-36.0); Mean Corpuscular Hemoglobin 30.4 pg (27.0-31.0); Mean Corpuscular Volume 93.1 fL (78.0-98.0); Mean Platelet Volume 11.7 fL (7.4-10.4); Platelet Count 234 10x3/uL (130-400); Red Blood Cell (RBC) Count 4.81 mill/uL (4.20-5.40)
[2023-08-08 05:25] LABS: Anion Gap 15 mmol/L (10-20); BUN (Urea Nitrogen) 15 mg/dL (9.8-20.1); Calc. Creatinine Clearance 82 mL/min (70-130); Carbon Dioxide 21 mmol/L (23-31); Chloride 106 mmol/L (98-107); Estimated GFR 68; Glucose 98 mg/dL (80-115); Magnesium 1.8 mg/dL (1.6-2.6); Potassium 4.3 mmol/L (3.5-5.1); Sodium 138 mmol/L (136-145)
[2023-08-08] MEDS: Losartan 25 MG TAB PO SCH (09:54)
[2023-08-08] MEDS: Rosuvastatin 10 MG TAB PO SCH (09:54)
[2023-08-08 14:33] LABS: Cardiac Risk 3.4 (Less than 4.5)
[2023-08-09 06:18] LABS: Anion Gap 14 mmol/L (10-20); BUN (Urea Nitrogen) 17 mg/dL (9.8-20.1); Calc. Creatinine Clearance 74 mL/min (70-130); Calcium 9.1 mg/dL (7.8-10.44); Carbon Dioxide 28 mmol/L (23-31); Chloride 102 mmol/L (98-107); Estimated GFR 62; Glucose 106 mg/dL (80-115); Potassium 3.8 mmol/L (3.5-5.1); Sodium 140 mmol/L (136-145)
[2023-08-09] MEDS: Empagliflozin 10 MG TAB PO SCH (10:06)
[2023-08-09] MEDS: Amlodipine 10 MG TAB PO SCH (16:05)
[2023-08-10] MEDS: Amlodipine 10 MG TAB PO SCH (09:56)
[2023-08-10 12:30] VITALS: BP 108/69; TEMP 98.4
== END 2023-08-10 15:55 | disposition home or self-care (01) | DRG 291 ==
LOC: ERS 08:06 → ERHOLD 12:05 → 2SW 16:07 → OBSVTOIN 08-08 12:17
PROVIDERS: ADMIT Family Medicine; ATTEND Hospitalist
DX: I11.0 Hypertensive heart disease with heart failure (principal); I50.33 Acute on chronic diastolic (congestive) heart failure; J96.01 Acute respiratory failure with hypoxia; K44.9 Diaphragmatic hernia without obstruction or gangrene; D64.9 Anemia, unspecified; E78.00 Pure hypercholesterolemia, unspecified; K21.9 Gastro-esophageal reflux disease without esophagitis; F41.9 Anxiety disorder, unspecified; F32.A Depression, unspecified; R91.1 Solitary pulmonary nodule; I16.0 Hypertensive urgency; Z86.711 Personal history of pulmonary embolism; Z98.51 Tubal ligation status; Z90.710 Acquired absence of both cervix and uterus; Z83.3 Family history of diabetes mellitus; Z82.49 Family history of ischemic heart disease and other diseases of the circulatory system; Z79.899 Other long term (current) drug therapy; Z79.01 Long term (current) use of anticoagulants
CPT/HCPCS: 36415; 71045; 71275; 74174; 80048; 80053; 80061; 82728; 83605; 83690; 83735; 83880; 84484; 85025; 93005; 93306; 93798; 96374; 96375; J1940; J2270; J2405; Q9967

== ENCOUNTER 2024-03-18 13:34 | Emergency (ER) | payer OTHER, MEDICAID ==
[2024-03-18] MEDS ORDERED: Lidocaine 4% Patch ONE (16:41)
== END 2024-03-18 17:07 | disposition home or self-care (01) ==
LOC: ERS 13:34
DX: M51.26 Other intervertebral disc displacement, lumbar region (principal); I10 Essential (primary) hypertension; K21.9 Gastro-esophageal reflux disease without esophagitis; E78.00 Pure hypercholesterolemia, unspecified; Z79.01 Long term (current) use of anticoagulants; Z79.899 Other long term (current) drug therapy
CPT/HCPCS: 72131; 72220

== ENCOUNTER 2024-05-29 11:07 | Outpatient (CLI) | payer OTHER, MEDICAID | END 2024-05-29 11:08 | disposition home or self-care (01) | LOC: BICMAMMO 11:07 | PROVIDERS: ATTEND Nurse Practitioner Family | DX: Z12.31 Encounter for screening mammogram for malignant neoplasm of breast (principal); Z91.89 Other specified personal risk factors, not elsewhere classified | CPT/HCPCS: 77063; 77067 ==

== ENCOUNTER 2024-06-14 12:23 | Emergency (ER) | payer OTHER, MEDICAID ==
[2024-06-14 14:07] LABS: ALT (SGPT) 18 U/L (Less than 34); AST (SGOT) 28 U/L (11-34); Albumin 3.8 g/dL (3.1-4.5); Alkaline Phosphatase 81 U/L (40-110); Anion Gap 18 mmol/L (10-20); BUN (Urea Nitrogen) 10 mg/dL (9.8-20.1); Bilirubin, Total 2.6 mg/dL (0.3-1.2); Calc. Creatinine Clearance 0 mL/min (70-130); Calcium 9.2 mg/dL (7.8-10.44); Carbon Dioxide 18 mmol/L (23-31); Chloride 105 mmol/L (98-107); Estimated GFR 76; Globulin 3.6 g/dL (2.4-3.5); Glucose 95 mg/dL (80-115); Potassium 4.4 mmol/L (3.5-5.1); Protein, Total 7.4 g/dL (5.8-8.1); Sodium 137 mmol/L (136-145)
[2024-06-14 14:08] LABS: Troponin I Less than 0.010 ng/mL (< 0.028)
== END 2024-06-14 17:43 | disposition home or self-care (01) ==
LOC: ERS 12:23
DX: I10 Essential (primary) hypertension (principal); Z86.718 Personal history of other venous thrombosis and embolism
CPT/HCPCS: 36415; 71045; 80053; 84484; 93005